=== PATIENT | female | born 1945 | race Caucasian/White ===

== ENCOUNTER 2016-06-14 17:57 | Inpatient (IN) | payer OTHER, MEDICARE ==
[~2016-06-14] VITALS: Ht 157.5 cm; Wt 81.6 kg
--- NOTE | ~2016-06-14 | HC ---
[facility] [place] [address] CONSULTATION Name: EDD HUNTER Room #: 405-P [facility] IN M.R.#: [id number] Admission: 06/14/16 Attend Phys: Dc Renner MD Discharge: 06/15/16 Date of : 41 Report #: [id number] THIS REPORT FOR: //name// CC: Dc Renner DATE OF SERVICE: 06/15/2016 HISTORY OF PRESENT ILLNESS: This lady was admitted by her primary care physician, Dr. Dc Renner. There has been concern about depression, anxiety and overall functioning. She has also had some changes in her mental status, which at the time certainly seemed to be out of proportion to what anxiety alone could produce and was having behavioral changes besides, so she was admitted to the hospital. It appears she has calmed down quite a bit. An MRI of the brain did show some frontal lobe atrophy. The patient herself does not know when she is having more trouble with depression and anxiety. PAST PSYCHIATRIC HISTORY: The patient denies any underlying psychiatric history. She and her have been together for almost 4 decades. She sees all of her difficulties as having come about in the last 5 years or so. In 2013, she went to inpatient psychiatry at [facility] and was managed by Dr. Terrell. It was very beneficial; however, she did not appear to get significant counseling afterwards. Wellbutrin was recently added by Dr. Renner. She has been on Remeron for quite a while. ALLERGIES: No known drug allergies. PAST MEDICAL HISTORY: Hypertension. SOCIAL HISTORY: for 38 years. No biological children of her own. has several children from past relationship. No alcohol or drug use. 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 Always had a very stable work history. LABORATORY DATA: WBC 7.1, hemoglobin 14.4, hematocrit 42.8 and platelets 246. Sodium 140, potassium 3.6, chloride 105, GFR 82, creatinine 0.7 and calcium 9.3. TSH 2.1. B12 of 776. Ammonia 17. AST 14, ALT 21 and total bilirubin 0.5. MRI of the brain has apparently shown that there is moderate atrophy with a frontal lobe predominance. There is no acute finding including infarction. MENTAL STATUS EXAM: female, casually dressed, depressed and anxious, normal spontaneous speech, no formal thought disorder, no involuntary movements. No suicidal ideation, no homicidal ideation, no hallucinations, no delusions. Insight and judgment fair. [facility] [address] [place] [address] CONSULTATION Name: EDD HUNTER Room #: 405-P [facility]#: [id number] Admission: 06/14/16 Attend Phys: Dc Renner MD Discharge: 06/15/16 Date of : 41 Report #: [id number] DIAGNOSES: AXIS I: Major depressive disorder, recurrent moderate, generalized anxiety disorder, panic disorder without agoraphobia. Cognitive disorder, not otherwise specified. AXIS II: Deferred. 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 AXIS IV: Moderate. AXIS V: 40-45. RECOMMENDATIONS: I do think there is a significant component of depression here, and the areas of decreased performed on the testing by Dr. Gillespie had suggested at that time that it could be due to level of depression. I would like to use Effexor in combination with Remeron as a more aggressive approach for longstanding depression and also anxiety. Some repeat testing by Dr. Gillespie may be indicated, and the patient may be a candidate for a PET scan, which sometimes can give more detailed and specific information if there is concern about atrophy in one brain region relative to another. If it is true we are dealing with frontal atrophy and seems to be possibly contributing to depression and cognitive dysfunction, then a dopaminergic agent like bupropion actually would make more sense, and could consider even a low dose of a stimulant like Ritalin. I am happy to have her follow up with me, and I would like her to start therapy and counseling in my office with Esvin Baeza. <ELECTRONICALLY SIGNED> By: Timur Mendoza MD 06/19/16 1414 1546 [id number] Timur Mendoza MD /nt
--- NOTE | ~2016-06-14 | D ---
[facility] [place] [address] DISCHARGE SUMMARY Name: EDD HUNTER Room #: 405-P [facility] IN M.R.#: [id number] Admission: 06/14/16 Attend Phys: Dc Renner MD Discharge: 06/15/16 Date of : 41 Report #: [id number] THIS REPORT FOR: //name// CC: Esvin Mendoza MD DATE OF SERVICE: 06/15/2016 HOSPITAL COURSE: The patient was admitted with altered mental status and underwent extensive evaluation. Her electroencephalogram was normal with no evidence of seizures. Her labs showed the following on the chemistry: Sodium was 140, potassium 3.6, chloride 105, bicarbonate 28, BUN of 9, creatinine 0.7, anion gap is 9, glucose 101 nonfasting, AST of 14, ALT of 21, total bilirubin was 0.5, calcium was 9.3, alkaline phosphatase 63 and the estimated GFR was 82. She did have an ammonia level which was normal at 17. She did have a protime of 10.6 with INR of 1.0 also normal. Her CBC showed a white count of 7100 with differential of 33% segs, 0% bands, 61%, lymphocytes, which is slightly elevated and monocytes of 6000. Eosinophils were 0, basophils were also 0 and the ANC was 2300. Hemoglobin was 14.4, normal hematocrit 42.8 and a platelet count of 246,000. Sedimentation rate was normal at 10. TSH was 2.120 and normal. Folate was greater than 19.9 and normal, vitamin B12 was 776 and normal. Urinalysis was essentially normal. Arterial blood gas was obtained. This showed a pH of 7.43 with pCO2 of 38.4 and a pO2 of 67.9 on room air. This is significant for mild hypoxemia. Subsequent chest x-ray showed bibasilar infiltrates/scarring and elevated right hemidiaphragm. She underwent MRI scan of the brain that showed moderate atrophy with frontal lobe predominance without infarction, hemorrhage or acute lateralizing process. A partial empty sella was noted as a normal variant. Slight inferior mucosal thickening in the right maxillary sinus was also noted. These were not felt to be clinically significant. Dr. Timur Mendoza saw the patient in consultation and felt that she had major depressive disorder, which was recurrent, moderate, with generalized anxiety disorder and panic disorder without agoraphobia and cognitive disorder, not otherwise specified, all in his AXIS I. AXIS III: In addition to the hypertension, mentioned the frontal lobe atrophy finding in the MRI with a moderate level in AXIS IV and AXIS V of 40-45. He recommended instead of using Wellbutrin, using Effexor instead. He also mentioned the significance of the frontal atrophy was not to be diminished to the patient now respond to therapy as expected. It might be worthwhile to obtain a PET scan to further assess her frontal lobe atrophy and if this is significantly contributing to her depression, cognitive dysfunction, a dopaminergic agent such as the Wellbutrin or even low dose stimulant Ritalin might be helpful in her case. Dr. Mendoza has graciously agreed to monitor of her therapy with myself continuing [address] [address] DISCHARGE SUMMARY Name: EDD HUNTER Room #: 405-P [facility] IN M.R.#: [id number] Admission: 06/14/16 Attend Phys: Dc Renner MD Discharge: 06/15/16 Date of : 41 Report #: [id number] prescription refills as needed and to have her start counseling in his office with Esvin Baeza. No other recommendations except to follow with the medication program as outlined in her discharge orders following regimen of medications Effexor XR 37.5 mg by mouth daily, alprazolam 0.5 mg by mouth 3 times daily p.r.n. anxiety, levothyroxine 0.075 mg by mouth daily, lisinopril 10 mg by mouth daily, mirtazapine 15 mg 2 tablets at bedtime, multivitamin by mouth daily and fish oil 1000 mg by mouth daily. To follow up in Dr. Mendoza's office in the next week for a counseling with Esvin Baeza and with myself in the next month and sooner as needed for any other issues. <ELECTRONICALLY SIGNED> By: Dc Renner MD 06/23/16 1154 1235 [id number] Dc Renner MD /nt
--- NOTE | ~2016-06-14 | EEG ---
[facility] [place] [address] ELECTROENCEPHALOGRAM Name: EDD HUNTER Room #: 405-P [facility] IN M.R.#: [id number] Admission: 06/14/16 Attend Phys: Dc Renner MD Discharge: 06/15/16 Date of : 43 Report #: [id number] THIS REPORT FOR: //name// CC: Dc Renner DATE OF SERVICE: 06/15/2016 DESCRIPTION OF PROCEDURE: This patient is being evaluated for altered mental status. EEG was done by placing the electrodes by standard 10-20 system of electrode placement. Both referential and sequential montages were used for recording. Background activity in this patient's EEG is about 11 Hz and 50 microvolts. This is a symmetrical activity. The patient appeared to be drowsy that is associated with bilateral slowing and a few vertex sharp waves. Photic stimulation was unremarkable. Throughout the records, no active epileptiform activity was noticed. IMPRESSION: This patient's EEG is within normal limits. Thank you very much for this referral. <ELECTRONICALLY SIGNED> By: Koffi Valentine MD 06/19/16 1528 1818 [id number] Koffi Valentine MD /nt
--- NOTE | ~2016-06-14 | H ---
[facility] [place] [address] HISTORY AND PHYSICAL Name: EDD HUNTER Nathan Room #: 405-P [facility] IN .R.#: [id number] Admission: 06/14/16 Attend Phys: Dc Renner MD Discharge: 06/15/16 Date of : 41 Report #: [id number] THIS REPORT FOR: //name// CC: Dc Mendoza MD DATE OF SERVICE: 06/14/2016 CHIEF COMPLAINT: Mental status changes. HISTORY OF PRESENT ILLNESS: The patient is a 70-year-old female, who was brought to my office today by her . The patient is having some sort of mental and/or physical decompensation, not getting out of bed for 20 out of 24 hours on most days in the last few weeks. She denies any particular fever, chills or sweats, but just has not felt well. She is not eating well, is not having regular bowel movements and is deathly afraid that something is terribly wrong. In fact, her symptoms were so severe that ____ the was moved to call for help for fear that some bad consequences would be ____ her during this time. PAST MEDICAL HISTORY: Significant for hypertension, depression versus bipolar, gastroesophageal reflux and possible cognitive disorder. ALLERGIES: She has no known drug allergies. MEDICATIONS: At home, she is taking alprazolam, fish oil, levothyroxine for hypothyroidism, lisinopril, mirtazapine and a multivitamin. She was started on bupropion several weeks ago; however, after getting home with the prescription, she read the package insert and decided that it was too dangerous and she did not take it as previously instructed. SOCIAL HISTORY: The patient is to Abraham Hunter. Her children are grown. She is a lifelong nonsmoker, nondrinker and has never abused recreational drugs. FAMILY HISTORY: Significant for rheumatic heart disease from which her father and other dementia that her mother of in her 80s, I believe. REVIEW OF SYSTEMS: The patient has had somewhat of a headache lately. No visual disturbances. No new hearing disturbances. No difficulties with swallowing. No chest pain, no shortness of breath. No abdominal pain, no diarrhea. She has some constipation. No new aches or pains in her legs. Generalized weakness. She has no focal deficits. PHYSICAL EXAMINATION: VITAL SIGNS: Her vital signs on admission showed a temperature of 98.[address] [address] HISTORY AND PHYSICAL Name: EDD HUNTER Room #: 405-P [facility]#: [id number] Admission: 06/14/16 Attend Phys: Dc Renner MD Discharge: 06/15/16 Date of : 43 Report #: [id number] Celsius with a pulse of 80, respirations of 18 per minute, blood pressure 139/65 and oxygen saturation on room air of 94%. GENERAL: The patient is a pleasant older white female, in no apparent distress. HEENT: Extraocular muscles are intact. Oropharynx is dry and pink. No lesions. No exudates. NECK: Without adenopathy or thyromegaly, JVD, mass or significant bruit. CHEST: Lungs are fairly clear bilaterally. CARDIOVASCULAR: Reveals a regular rhythm. ABDOMEN: Soft. Bowel sounds are present. No visceromegaly or masses. BACK: Completely nontender and has good range of motion. EXTREMITIES: Without cyanosis, clubbing or peripheral edema. Good peripheral pulses in all 4 distal extremities and good generalized strength and sensation. MENTAL STATUS: The patient is alert. She is oriented to person, place and time. Mini-mental status exam, scored well but she failed the clock test. No hallucinations or delusions. Affect was clearly downcast during the entire exam (please note the patient had a neuropsych testing done at ____ office and will bring copy of the formal report with them to the hospital tomorrow). ASSESSMENT AND PLAN: 1. Altered mental status: I cannot explain her symptoms based on exam alone. A workup has been started including labs including thyroid, blood cell counts, chemistry, etc. Brain scan per MRI. We will get a psychiatric evaluation as well. 2. Hypertension: We will monitor control and adjust treatment accordingly. 3. Family history of dementia: She does not have any overt memory issues on exam, although the clock test failure rather surprised me. The patient has a master's degree level of education and after scoring a near perfect mini-mental status exam, this did not jive with what I was seeing and hopefully can be explained better by the workup that has been initiated. 4. History of depression versus bipolar disease: We will defer to the psychiatrist as far as diagnosis and management, but I think that given the severity of her symptoms, she will need more than just single simple antidepressant regimen. 5. Anxiety disorder: I wonder whether she has panic attacks or posttraumatic stress disorder. She reports her symptoms began about 3 years ago and attained a severity, which paralyzes her almost to the point of inactivity. If her altered mental status exam workup is negative for physical issue, we would like for the Psychiatry community health consultant to comment on whether she meets criteria for inpatient psychiatric evaluation. It is noteworthy that she is not suicidal or homicidal at this time and has not been in any recent weeks to the best of my knowledge and that of her . <ELECTRONICALLY SIGNED> By: Dc Renner MD 06/23/16 1154 1227 1352 Dc Renner MD /nt
--- NOTE | ~2016-06-14 | EKG ---
[address] [address] ELECTROCARDIOGRAM REPORT Name: EDD HUNTER Room #: 405-P AD[facility] IN M.R.#: [id number] Admission: 06/14/16 Attend Phys: Dc Renner MD Discharge: Date of : 41 Report #: [id number] THIS REPORT FOR: //name// [facility] Test Date: 2016-06-15 Test Time: 07:18:06 Pat Name: EDD HUNTER Department: Room: 405 P Gender: F Crystal Report Developer: Diego MARIE : 1945 Requested By: Dc Renner Order Number: [id number] MD: Tamir Rivera Measurements Intervals [place] Rate: 69 P: 24 DE: 220 QRS: -45 QRSD: 122 T: 48 QT: 413 QTc: 443 Interpretive Statements Sinus rhythm Prolonged DE interval Left bundle branch block No previous ECG available for comparison Electronically Signed On 06-15-2016 14:12:54 [employer] DEVEL[employer] by Tamir Rivera [email or web address] <ELECTRONICALLY SIGNED> By: Tamir Rivera MD 06/15/16 1412 7 7 Tamir Rivera MD /NASIR
[2016-06-14] MEDS ORDERED: XANAX 0.25 MG0.25 MG PO (18:28)
[2016-06-14 18:30] VITALS: BP 139/65
[2016-06-14] MEDS ORDERED: LEVOTHYROXIN0.075 MG PO (18:32)
[2016-06-14] MEDS ORDERED: LISINOPRIL10 MG PO (18:33)
[2016-06-14] MEDS ORDERED: REMERON15 MG PO (18:34)
[2016-06-14] MEDS ORDERED: CENTRUM SILVER1 EAC4 PO (18:34)
[2016-06-14] MEDS ORDERED: FISH OIL 1,001000 M2 PO (18:35)
[2016-06-14] MEDS ORDERED: WELLBUTRIN XL150 MG PO (18:35)
[2016-06-14 19:23] VITALS: BP 127/50
[2016-06-14 23:29] LABS: ABG SAMPLE TYPE ARTERIAL; BE(vivo) 0.8 mmol/L (-2 to +3); HCO3 24.9 mmol/L (22.0-26.0); LACTATE 1.23 mmol/L (0.5-2.0); O2(CT) 19.5 mL/dL (15.0-23.0); O2Hb 92.7 % (92.0-98.0); PCO2 38.4 mmHg (35.0-45.0); PO2 67.9 mmHg (80.0-100.0); STICK SITE R.BRACHIAL; sO2 94.1 % (92.0-98.0); tCO2 26.1 mmol/L (24.0-30.0)
[2016-06-14 23:50] LABS: HEMATOCRIT 42.8 % (37.0-47.0); HEMOGLOBIN 14.4 gm/dL (12.0-15.0); MCH 29.9 pg (26.0-34.0); MCHC 33.6 % (28.0-37.0); MCV 89.2 fL (80.0-100.0); PLATELET COUNT 246 thou/uL (150-400); RDW 13.4 % (10.5-14.5); WBC 7.1 thou/uL (4.0-11.0)
[2016-06-15] LABS: PROTIME 10.6 Seconds (9.3-11.4)
[2016-06-15 00:07] VITALS: BP 112/54
[2016-06-15 00:18] LABS: ALBUMIN 3.4 g/dL (3.4-5.0); CALCIUM 9.3 mg/dL (8.5-10.1); CREATININE 0.7 mg/dL (0.6-1.3); DIRECT BILIRUBIN 0.1 mg/dL (<0.1-0.3); POTASSIUM 3.6 mmol/L (3.5-5.1); TOTAL BILIRUBIN 0.5 mg/dL (<0.1-1.0); TOTAL PROTEIN 6.3 g/dL (6.4-8.2)
[2016-06-15 00:20] LABS: MANUAL DIFF YES
[2016-06-15 01:29] LABS: ABSOLUTE NEUTROPHILS 2.3 thou/uL (1.4-8.2); TOTAL CELL COUNT 100
[2016-06-15 05:20] VITALS: BP 117/62
[2016-06-15 08:00] VITALS: BP 115/52
[2016-06-15 10:11] LABS: FOLIC ACID > 19.9 ng/mL (>3.0)
[2016-06-15 11:08] LABS: URINE BLOOD NEGATIVE (Negative); URINE COLOR YELLOW; URINE GLUCOSE-RANDOM* NEGATIVE (Negative); URINE KETONES 1+ (Negative); URINE LEUKOCYTES-REFLEX NEGATIVE (Negative); URINE PROTEIN (DIPSTICK) NEGATIVE (Negative); URINE SPECIFIC GRAVITY 1.025 (1.003-1.035); URINE UROBILINOGEN 0.2 E.U./dl (0.2-1.0)
[2016-06-15 11:10] LABS: URINE BILIRUBIN NEGATIVE (Negative)
[2016-06-15 16:06] VITALS: BP 121/70
[2016-06-15] MEDS ORDERED: EFFEXOR XR37.5 MG PO (19:00)
[2016-06-15 19:10] VITALS: BP 121/70
== END 2016-06-15 20:15 | disposition home or self-care (01) | DRG 880 ==
LOC: 4N 17:57
PROVIDERS: Internal Medicine
DX: F41.0 Panic disorder [episodic paroxysmal anxiety] (principal); F32.9 Major depressive disorder, single episode, unspecified; R41.82 Altered mental status, unspecified; I10 Essential (primary) hypertension; F41.1 Generalized anxiety disorder; F03.90 Unspecified dementia, unspecified severity, without behavioral disturbance, psychotic disturbance, mood disturbance, and anxiety
CPT/HCPCS: 10790

== ENCOUNTER → 2017-05-24 | Outpatient (CLI) | payer OTHER, MEDICARE ==
[~2017-05-24] MED LIST: CENTRUM SILVER1 EAC4 PO; EFFEXOR XR37.5 MG PO; FISH OIL 1,001000 M2 PO; LEVOTHYROXIN0.075 MG PO; LISINOPRIL10 MG PO; REMERON15 MG PO; WELLBUTRIN XL150 MG PO; XANAX 0.25 MG0.25 MG PO
== END ==
LOC: SLEEPLAB 12:37
DX: G47.33 Obstructive sleep apnea (adult) (pediatric) (principal)

== ENCOUNTER → 2017-10-24 | Outpatient (CLI) | payer OTHER, MEDICARE | LOC: SLEEPLAB 10-23 17:14 | DX: G47.33 Obstructive sleep apnea (adult) (pediatric) (principal) ==

== ENCOUNTER → 2017-11-08 | Outpatient (CLI) | payer OTHER, MEDICARE | LOC: ULTRA 06:08 | DX: E03.9 Hypothyroidism, unspecified (principal) ==

== ENCOUNTER 2018-05-30 13:17 | Inpatient (IN) | payer OTHER, MEDICARE ==
[~2018-05-30] VITALS: Ht 149.9 cm; Wt 66.2 kg
[2018-05-30 13:19] VITALS: BP 135/89
[2018-05-30 14:29] LABS: HEMATOCRIT 43.8 % (37.0-47.0); HEMOGLOBIN 14.8 gm/dL (12.0-15.0); MCH 30.5 pg (26.0-34.0); MCHC 33.8 g/dL (28.0-37.0); MCV 90.1 fL (80.0-100.0); RBC 4.86 mil/uL (4.20-5.00); RDW 13.8 % (10.5-14.5); WBC 6.1 thou/uL (4.0-11.0)
[2018-05-30 14:38] LABS: CALCIUM 9.7 mg/dL (8.5-10.1); CREATININE 0.7 mg/dL (0.6-1.0); POTASSIUM 4.1 mmol/L (3.5-5.1)
[2018-05-30 15:13] LABS: URINE BILIRUBIN NEGATIVE (Negative); URINE BLOOD NEGATIVE (Negative); URINE CLARITY CLEAR; URINE COLOR YELLOW; URINE GLUCOSE-RANDOM* NEGATIVE (Negative); URINE KETONES NEGATIVE (Negative); URINE LEUKOCYTES-REFLEX 1+ (Negative); URINE NITRITE-REFLEX NEGATIVE (Negative); URINE PROTEIN (DIPSTICK) NEGATIVE (Negative); URINE UROBILINOGEN 0.2 E.U./dl (0.2-1.0)
[2018-05-30 15:19] LABS: AMP/METHAMP Negative (Negative); BACTERIA-REFLEX None Seen /HPF (None Seen); BARBITURATES Negative (Negative); BENZODIAZEPINES POSITIVE (Negative); COCAINE Negative (Negative); METHADONE Negative (Negative); OPIATES Negative (Negative); PCP Negative (Negative); SQUAMOUS >10 Many /LPF (0-3); URINE RBC None Seen /HPF (0-2); URINE WBC-REFLEX 6-15 Few /HPF (0-5)
[2018-05-30 15:20] LABS: CRYSTALS None Seen /LPF (None Seen)
[2018-05-30 17:13] VITALS: BP 128/72
--- NOTE | 2018-05-30 17:24 | NUR ---
THIS NURSE RECEIVED REPORT FROM ER NURSE AT ABOUT 1710 R/T ADMISSION OF EDD HUNTER TO ROOM 528-B ON SENIOR BEHAVIORAL UNIT. ORDERS PER DR. TENA; ATTENDING PHYSICIAN DR. SYED. LABS COMPLETED IN ER, NO DISCREPANCIES; 20 GUAGE IV SL R AC. PATIENT REPORTS NO SUICIDAL IDEATION. AMBULATES PER SELF, NO SKIN ISSUES.
[2018-05-30 17:47] VITALS: BP 156/101
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
[2018-05-30 20:30] VITALS: BP 146/92
[2018-05-30 21:00] VITALS: BP 146/92
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
--- NOTE | 2018-05-31 06:05 | NUR ---
PATIENT SLEPT WELL OVERNIGHT WITH DIFFICULTY GETTING TO SLEEP INITIALLY. PT WAS ANXIOUS DUE TO NEW ADMISSION/NEVER BEEN ON A PSYCHIATRIC UNIT INPATIENT PRIOR TO ADMISSION. MEDICATION ADMINISTERED PER ORDER, SEE MAR, WITH TRAZODONE FOR INSOMNIA. NEW MEDICATON, EDUCATION PROVIDED TO PATIENT WITH CONSENT TO TAKE. NO SIDE EFFECTS OBSERVED AFTER ADMINISTRATION AND PATIENT APPEARED TO BE RESTING PEACEFULLY WITH RR EVEN AND UNLABORED. SLEPT 8 HOURS LAST HS WITH REPORTS OF INSOMNIA, SEVERE, PRIOR TO ADMISSION. TRAZODONE APPEARS EFFECTIVE. WILL CONTINUE TO MONITOR PER PHYSICIANS ORDER FOR SAFETY AND ANY UNMET NEEDS.
[2018-05-31 08:00] VITALS: BP 134/78
[2018-05-31 08:53] VITALS: BP 134/78
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
--- NOTE | 2018-05-31 16:02 | NUR ---
ASSUMED PT CARE AT 0700 REPORT RECEIVED FROM NURSE. PT IS AOX4, VSS. NO PAIN COMPLAINT. APPEARNACE IS NEAT. EUTHYMIC MOOD. PT ASKED TO BE DRESSED UP IN THE AM. CONSUMED 100% BREAKFAST AND LUNCH. CAME TO VISIT, PT HAD A CALM TIME COMMUNICATING WITH . PT ALSO HAD A MEETING WITH DR TENA WHO MADE SOME CHANGES IN PT HS MEDICATIONS. PT AWARE OF THESE CHANGES. PT UP AD KAT. NO HALLUCINATIONS, PARANOID STATE NOTED. PT PARTICIPATES IN GROUP, BUT VERY QUIET. PT PREFERS TO STAY IN ROOM ALONE PLAYING WORD CROSSING WHEN NOT IN GROUP AND EATING. MEDICATIONS ADMINISTERED ORDERED. WILL CONTINUE TO MONITOR.
--- NOTE | 2018-05-31 16:46 | NUR ---
IV LINE FROM RIGHT AC WAS DISCONTINUED PER DR ORDER AT 11:00 THIS AM. SITE GAUZED AND TAPED.
--- NOTE | 2018-05-31 17:40 | NUR ---
CONSUMED 25% OF BREAKFAST 75% OF LUNCH , 75% OF DINNER
[2018-05-31 19:35] VITALS: BP 138/92
--- NOTE | 2018-05-31 22:00 | NUR ---
ASSUMED PATIENT CARE AT APPROXIMATELY 1900. VERBAL REPORT PROVIDED BY OFF GOING RN. PATIENT HAD VISIT WITH , OUTSIDE OF NORMAL VISITING HOURS, UPON ARRIVAL TO SHIFT AND APPEARED TO BE BRIGHTER THIS SHIFT. SMILING APPROPRIATELY. COMPLIANT AND COOPERATIVE WITH STAFF REQUESTS. SYNTHROID ORDER CHANGED, SEE MAR, EDUCATION PROVIDED TO PATIENT ON CHANGE AND VERBALIZED UNDERSTANDING. SHOES WITH LACES X 2 (ONE PAIR OF SLIPPER SHOES/TENNIS SHOES), WAS FOUND ON PATIENTS FEET AND IN HER ROOM ON THE FLOOR. EDUCATION PROVIDED ON THE SAFE UNIT AND WHAT CLOTHING/SHOES ARE ALLOWED OR NOT. I DID TAKE POSSESSION OF THE SHOES X2 AND PLACED IN ASSIGNED LOCKER FOR UNIT SAFETY. ASSESSED DEPRESSION RATING 7/10. ANXIETY 6/10. PAIN 0/10. VITAL SIGNS ELEVATED INCLUDING HEART RATE AND BLOOD PRESSURE. NOTED TO BE PRESCRIBED LISINOPRIL AT HOME, BUT PATIENTS REPORTS BLOOD PRESSURE HAS BEEN HYPOTENSIVE PRIOR TO ADMISSION AND LISINOPRIL WAS HELD PRIOR TO ADMISSION. DR. MEDINA COMMUNICATION RECOGNIZES LISINOPRIL IS ON HOLD WHILE ADMISSION. PER DR. MEDINA PROGRESS NOTE STATES THE PATIENT WAS DIAGNOSED WITH NEELAM AND CPAP MACHINE WILL BE FITTED AND ORDERED AFTER DISCHARGE FROM PSYCHIATRIC UNIT. ADMITS DEPRESSION FEELINGS PRESENT RATING 7/10 AND ANXIETY 6/10, RESTLESS. PLESANT AND REPORTS DAY WAS WELL. SLEEP WAS GOOD LAST NIGHT WITH DIFFICULTY INITALLY GETTING TO SLEEP. SLEPT WELL ONCE ASLEEP. PATIENT REPORTS LAST BOWEL MOVEMENT 05/31/18, WITH STRAINING TO HAVE BM. GAVE MILK OF MAGNESIUM TO ASSIST WITH CONSTIPATION FEELINGS, NORMALLY A BOWEL MOVEMENT PER DAY. REPORTS AT HOME WAS TAKING MIRALAX, ONLY DAILY, MIXED WITH MORNING COFFEE TO ASSIST WITH CONSTIPATION FEELINGS. LOW GRADE FEVER ASSESSED, SEE VITAL SIGNS, AND TYLENOL ADMINISTERED, PRN, FOR FEBRILE. PATIENT REPORTS BASELINE TEMPERATURE IS GENERALLY LOW. VERBALLY DENIES SI/HI/A/V H. ALERT AND ORIENTED X 4. APPEARANCE IS GOOD, NO ODOR. APPETITE HAS BEEN FAIR, VERBALLY REFUSING HS SNACK. APPETITE CONTINUES DECREASED PER PATIENT BUT DID CONSUMED MEALS OUT OF BED, SEE CHARTING FOR AMOUNT CONSUMED. MEDICATION COMPLIANT WITH SCHEDULED MEDIATIONS AND EDUCATIN PROVIDED ON PATIENT RIGHTS, TREATMENT OVERVIEW, AND EXPECTATIONS WITH DAILY SCHEDULED. VERBALIZED UNDERSTANDING. SUPPORTIVE AND VISIT WENT THERAPEUTIC. WILL CONTINUE TO MONITOR PT CLOSELY FOR SAFETY AND ANY ADDITIONAL UNMET NEEDS.
--- NOTE | 2018-06-01 06:32 | NUR ---
DIANA HAD A GOOD SHIFT THROUGHOUT THE HS. HAD DIFFICULTY GETTING TO SLEEP INITIALLY AFTER ADMINISTRATION OF HS MEDICATION INCLUDING INCREASED DOSE OF TRAZODONE 100MG PO HS. COMPLIANT WITH MEDICAITONS. ONCE PATIENT WAS ASLEEP APPEARED TO REST PEACEFULLY THROUGHOUT THE HS, NO REPORTS OF AMBULATION OR DIFFICULTY STAYING ASLEEP.
[2018-06-01 09:19] VITALS: BP 127/76
[2018-06-01 09:29] VITALS: BP 128/77
--- NOTE | 2018-06-01 14:14 | NUR ---
ASSUMED PT CARE AT 0700H. PT ALERT. PT HAS NO S/S OF DISTRESS. PT STATES NO THOUGHTS OF HARMING SELF OR OTHERS. PT TOLERATES MEALS AND MEDS. PT HAD VISIT FROM SPOUSE. PREVIOUS REPORT OF PT PREVIOUS BOWEL BEING CONSTIPATED. RECIEVED NEW ORDERS FROM DR. MEDINA CANVAS CUTTER FOR DR. RAMAN TO GIVE MIRALAX PRN AND COLACE BID. PT CURRENTLY SLEEPING IN ROOM. PT CONTINUES TO BE MONITORED FOR SAFETY [id number].
--- NOTE | 2018-06-01 14:57 | NUR ---
GIA met with Pt and her family (spouse) and discussed insurance. Pt was worried about her insurance not paying for her hospitalization. She also has concerns about her medications. Pt doesn't remember medications taken or their names. Pt was also confused about her rights as a Pt here. Pt's Abraham stated Pt was confused about her medications and doesn't fully understand her rights. GIA explained to Pt that she has the rights to ask questions and raise her concerns including refusal of taking medications. GIA explained that Pt has the right to leave if Pt chooses unless Pt is court orederd to be admitted. GIA explained that that medical needs including medications should be directed to nursing staff and the doctor. GIA called nurse Jeremy to provide a better explaination. Jeremy clarified the medications Pt was given last night and this morning. Pt complained of difficulty falling and staying asleep and stated "that's my biggest problem which led me here. I can't sleep". Pt's spouse reported that Pt had sleep test done twice here at this hospital, but never received f/u. Pt wants to know if she can get CPAP machine. GIA explained that a medical doctor should be contacted and that GIA will relay the information to Dr. Maya. GIA then discussed insurance and reminded Pt that Medicare will pay for treatment and if there is anything left unpaid, her secondary insurance ([employer]) will pickle pumper the rest. Abraham stated that Pt has hard time undersding, but he understands how it works. GIA then printed a list of the medications and provided Abraham with the copy and encoouraged him to ask Dr. Maya any additional questions he may have. He thanked GIA and stated he will.
--- NOTE | 2018-06-01 17:31 | H ---
[facility] [place] [address] HISTORY AND PHYSICAL Name: EDD HUNTER Room #: 528B-A ADM IN M.R.#: [id number] Admission: 05/30/18 Attend Phys: Phi Maya DO Discharge: Date of : 41 Report #: [id number] THIS REPORT FOR: //name// CC: Phi Renner DATE OF SERVICE: 05/30/2018 ATTENDING physician: Phi Maya DO SCREW MACHINE OPERATOR SINGLE SPINDLE: Dr. Renner. The patient is a full code. ALLERGIES: No known allergies. REASON FOR ADMISSION: Depression, refractory to outpatient treatment, failing as well to get out of bed the last week, poor hygiene. HISTORY OF PRESENT ILLNESS: This is a 72-year-old female admitted to Behavioral Health Unit at [facility]. She last had admission to [facility] in May of 2016. We do have records for that. Within a couple of months of that admission, she had a neuropsychological evaluation by Dr. Nabeel Gillespie at this clinic. I do not have the findings of that other than being informally noted there was evidence of medial temporal dysfunction and isolated memory deficits, however, diagnosis of major neurocognitive disorder was not made. The complaints that the patient gave at the Emergency Room are as follows. She has had increasing depression for the last several months. The patient struggled with depression, anxiety, episodically last several years. Reports feeling nervous and "shaky" and no known stressors. She takes alprazolam 0.25 mg every 8 hours for symptoms and has had recent medication change. Apparently, she last saw Dr. Alicea couple months ago. The patient most recently took alprazolam at 0730 hours this morning. I spoke with Dr. Renner, Internal Medicine yesterday regarding symptoms. She denied SI, HI, self-harm or auditory or visual hallucinations. On further review of systems, states increased depression with anxiety attacks x 5 weeks. REVIEW OF SYSTEMS: From the ER: CONSTITUTIONAL: Negative for fever or chills. EYES: Negative for eye pain or visual change. HEENT: Negative for rhinorrhea or sore throat. RESPIRATORY: Negative for cough or shortness of breath. CARDIOVASCULAR: Negative for chest pain or palpitations. GASTROINTESTINAL: Negative for abdominal pain, nausea, vomiting or diarrhea. [address] [address] HISTORY AND PHYSICAL Name: LEDYFOUZIAEDD N Room #: 528B-A [facility] IN [facility].#: [id number] Admission: 05/30/18 Attend Phys: Phi Maya DO Discharge: Date of : 43 Report #: [id number] GENITOURINARY: Negative for burning, urgency, frequency or hematuria. MUSCULOSKELETAL: Negative for back pain or muscle pain. SKIN: Negative for any rash. NEUROLOGICAL: Negative for numbness, tingling or weakness. ENDOCRINE: Negative for diabetes and hypothyroidism. HEMATOLOGIC AND LYMPHATIC: Negative for easy bleeding or bruising. Otherwise, 10-point review of systems was negative. ALLERGIES: No known allergies. MEDICATIONS: Include docosahexaenoic acid 100 mg p.o. daily, multivitamin with minerals oral daily, mirtazapine 50 mg at bedtime, which she denied to me, lisinopril 10 mg daily, levothyroxine 75 mcg daily; however, she is now taking 50 mcg and alprazolam 0.25 mg every 8 hours. She was recently restarted on Effexor. She believes she was taking 75 mg a day. PAST MEDICAL HISTORY: Includes hypertension, miscarriage with D and C in 1979. PAST SURGICAL HISTORY: Hysterectomy in 1988. PSYCHIATRIC HISTORY: Short-term memory loss, anxiety attacks, depression. FAMILY HISTORY: Father of Creutzfeldt-Julius disease. Mother had dementia. Mother had anoxic brain injury and was in a locked-in syndrome. Her father had reported Creutzfeldt-Julius disease. LABORATORIES ON ADMISSION: TSH elevated at 9.190. It has been less than a month since her dose of levothyroxine has been increased, anion gap 6, glucose 116. Urine benzodiazepine screen positive, leukocyte esterase positive, 1+ urine, white blood cells 6-15 and squamous epithelial cells greater than 10. She had an MRI in May 2016. It was suspicious because it raised moderate atrophy with frontal lobe predominance without infarction, hemorrhage or acute lateralizing process and again she did have neuropsych testing, but report is not available. She had an EEG, which was grossly normal during that admission. Interestingly too, she has reported some sleep disturbance, but had a sleep study 11/03/2017 and she does have obstructive sleep apnea-hypopnea, on definite CPAP since the patient had minimal sleep. They recommended caution regarding driving or operating machinery. Weight loss, TSH may be considered, oral appliance. We recommend an auto titrating CPAP between 5 and 12 cm of water pressure. Unclear at this point if the patient is using that. SOCIAL HISTORY: The patient was born and raised in [place]. 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 She has 2 adult stepchildren with her . Her is a retired data security coordinator from [employer]. [facility] [address] [place] [address] HISTORY AND PHYSICAL Name: EDD HUNTER Room #: 528B-A [facility] IN [facility]#: [id number] Admission: 05/30/18 Attend Phys: Phi Maya, DO Discharge: Date of : 43 Report #: [id number] LABORATORY DATA: CBC: H and H was 14.8 and 43.8. White count 6.1, platelet count 268. Chemistry showed within normal limits except anion gap, glucose, which was nonfasting and TSH. Toxicology negative. Alcohol positive for benzodiazepines in her urine. There were rbc's, wbc's, no bacteria. No criminal history. No legal history. No history Denied physical, sexual or emotional abuse. PHYSICAL EXAMINATION: VITAL SIGNS: Temperature 36.9, pulse 76, respirations 18, BP 134/70, O2 sat 96%. MUSCULOSKELETAL: Normal gait and station, wears glasses. Mental status examination was performed. The patient scored 22/30. Differences included 4 from 5, one recent memory, only one on the money management question, got one wrong. She did not put the correct clock at the correct time. Otherwise, she was fully oriented. Currently hospital medications are trazodone 100 mg at bedtime, we increased that from yesterday, venlafaxine 150 mg daily. She will get vitamin D 5000 international units daily, Synthroid 50 mcg daily, alprazolam 0.25 three times a day p.r.n., ondansetron p.r.n. This is a well-developed, well-nourished female appearing stated age. Attention and concentration are intact. Speech is normal, rate, rhythm, tone. Thought process is linear and goal directed. Thought content, ameliorating her feelings of depression, inability to concentrate and really get out of bed. Denied SI, HI. Denied hopelessness, helplessness. Denied homicidal intent or plan. Memory formally tested, mildly impaired as described above and oriented x 4. Insight fair. Judgment fair. Fund of knowledge, at least average. ASSESSMENT: A 72-year-old female admitted with symptoms of major depression as well as variable anxiety, who has been refractory to outpatient treatment by PCP and psychiatrist. 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 PLAN: I went ahead and discontinued the Depakote as at the moment, it does not serve any useful purpose. Continue minocycline 150 mg daily. Continue vitamin D for now. Continue alprazolam. Continue further medication changes once we get to better handle the case. Time spent on interview, evaluation of records, coordination of care exceeded [address] [address] HISTORY AND PHYSICAL Name: EDD HUNTER Nathan Room #: 528B-A [facility] IN ..#: [id number] Admission: 05/30/18 Attend Phys: Phi Maya DO Discharge: Date of : 43 Report #: [id number] minutes. The time that begun this morning was about 10:00 a.m. strengths: , community dewlling weaknesses, cognitive impairment, not currently in psychotherpay <ELECTRONICALLY SIGNED> By: Phi Maya DO 06/01/18 [id number] Phi Maya DO /nt
[2018-06-02 00:46] VITALS: BP 157/86
--- NOTE | 2018-06-02 05:58 | NUR ---
SLEPT WELL DURING THE NIGHT EXCEPT FOR BEING AWAKENED BY A LOUD RESIDENT IN HALLWAY. CALM, PLEASANT, CONVERSATIONAL. LAST BM WAS SATURDAY, RECEIVING BM MEDS. DENIES PAIN. AMBULATES IN HALLWAY. WENT TO SLEEP AT 2230.
[2018-06-02 08:47] VITALS: BP 125/77
--- NOTE | 2018-06-02 18:43 | NUR ---
ASSUMED CARE OF PT AT APPROX 0700. PT IS ALERT AND ORIENTED X4, EVEN NONLABORED BREATHING. NO SIGNS OF ACUTE DISTRESS. ASSESSMENT CHARTED. PROVIDED PRN MIRALAX PT REPORTS NO BM. MAG CITRATE TO BE GIVEN WELL WITH A NEW SCHEDULE OF MIRALAX WITH HOPES OF A BOWEL MOVEMENT. PT IN DAY ROOM MOST OF DAY. FAMILY VISITING DURING VISITING HOURS. PT PLAYING CARDS WITH SELF AND WITH OTHERS. INTERACTING WELL. APPROPRIATE BEHAVIORS OBSERVED. WILL CONTINUE TO MONITOR.
[2018-06-02 19:43] VITALS: BP 138/82
[2018-06-02 21:42] VITALS: BP 138/82
--- NOTE | 2018-06-03 03:01 | NUR ---
PATIENT HAS YET TO HAVE ADEQUATE BM. MAG CITRATE GIVEN AROUND 1930, BUT OF BEDTIME HAS HAD NO RESULTS. SLEPT WELL THROUGH THE NIGHT W/O COMPLAINT.
[2018-06-03 07:30] VITALS: BP 121/60
--- NOTE | 2018-06-03 08:44 | NUR ---
ASSUMED CARE OF PT AT APPROX 0700. PT IS ALERT AND ORIENTED X4, ABLE TO VOICE HER NEEDS. REPORTS SLEEP WAS ON AND OFF LAST NIGHT. C/O CONSTIPATION. LAST BM WAS 4 DAYS AGO. HAD MAG CITRATE YESTERDAY WITH NO RESULT. BS HYPOACTIVE, GIVE PRN MAG -AL PLUS AND SCHEDULE MIRALAX WITH WARM PRUNE JUICE. ASSESSMENT CHARTED. PT IN DAY ROOM AT THIS MOMENT. ATE 95% BREAKFAST, DENIES PAIN, SOB,N/V. PT SAID HER WOULD LIKE TO STAY WITH HER LONGER AT EVENING TIME. INTERACTING WELL. DENIES HAVING SUCIDAL THOUGHT, ANXIOUS, OR DEPRESSE. PT C/O MILD TREMOR AND THINKS IT FROM ONE OF HER MEDICATIONS, SHE TOLD HER PSYCHIATRIST THIS MORNING. WILL CONTINUE TO MONITOR. APPROPRIATE BEHAVIORS OBSERVED. HER GOALS TO CONTINUE WITH THERAPY, TAKE MEDS, HAS BM AND HAS A GOOD DAY.WILL CONTINUE TO MONITOR.
[2018-06-03 19:40] VITALS: BP 158/93
--- NOTE | 2018-06-04 00:17 | NUR ---
ASSUMED CARE OF THE PATIENT AT 1935 PM. ALERT ET ORIENTED X 4, MAKES NEEDS KNOWN. CALM ET COOPERATIVE WITH STAFF, DOES STAY TO HERSELF IN HER ROOM, DOES NOT COME OUT TO THE DAYROOM. DENIES ANXIETY AND DEPRESSION. CONTINUES TO HAVE A FLAT AFFECT. TOOK HER HS MEDICATION WITHOUT ANY DIFFICULTY. IS WORRIED THAT SHE NEEDS TO HAVE A BM, BUT IT WAS REPORTED TO THIS NURSE, SHE HAD ONE LARGE BM ON THE DAY SHIFT. REMAINS ON 12 MINUTE CHECKS FOR HER SAFETY.
--- NOTE | 2018-06-04 02:41 | NUR ---
THE PATIENT HAS BEEN SLEEPING IN BED, WITH RESP., EVEN, AND UNLABORED. REMAINS ON 12 MINUTES CHECKS FOR HER SAFETY.
--- NOTE | 2018-06-04 06:36 | NUR ---
THE PATIENT SLEPT 7.4 HOURS LAST NIGHT.
[2018-06-04 08:54] VITALS: BP 141/77
--- NOTE | 2018-06-04 09:01 | NUR ---
GIA scheduled pt with intensive outpatient therapy services with [facility] on June 06, 2018 at 10:00am.
--- NOTE | 2018-06-04 12:31 | NUR ---
PATIENT HAS BEEN UP AND OUT ON THE UNIT, HAD BREAKFAST, REFUSED LUNCH. PATIENT HAS HAD BOWEL MOVEMENT X2 THIS MORNING. PATIENT DENIES SUICIDAL, HOMOCIDAL IDEATION. SHE RATED HER DEPRESSION AT 6/10, ANXIETY 4/10. PHARMACY INFORMATION OBTAINED FROM PATIENT AND GIVEN TO DR. TENA BETOREEAngie IN THE MORNING MEETING. NO AGITATION OR AGGRESSIVE BEHAVIOR NOTED AT THIS TIME, WILL MONITOR FOR SAFETY.
[2018-06-04] MEDS ORDERED: EFFEXOR XR75 MG PO (12:42)
[2018-06-04] MEDS ORDERED: SEROQUEL 25 MG25 M1 PO (12:44)
[2018-06-04] MEDS ORDERED: SEROQUEL 50 MG50 MG PO (12:45)
[2018-06-04] MEDS ORDERED: MIRALAX17 GM PO (12:47)
[2018-06-04] MEDS ORDERED: SYNTHROID50 MCG PO (12:48)
[2018-06-04] MEDS ORDERED: VITAMIN D5000 UNIT PO (12:48)
[2018-06-04 13:18] VITALS: BP 141/77
--- NOTE | 2018-06-04 15:03 | NUR ---
Patient Name: EDD HUNTER Admission Date: 05/30/18 DISCHARGE PLAN: Home with her Care Assessment: Pt was assessed and treated for depression. Pt was referred to [facility] for intensive outpatient therapy services. Level II Assessment: N/A Transportation: Pt was transported by her Aneesh Special Instructions/Notes: DISCHARGE TO FACILITY: Facility: Phone: Fax: Address: Contact Name: Phone: PCP: TONIO Psychiatrist: Elke Baeza
--- NOTE | 2018-06-06 09:10 | D ---
[facility] [place] [address] DISCHARGE SUMMARY Name: EDD HUNTER Room #: 528A-A [facility] IN ..#: [id number] Admission: 05/30/18 Attend Phys: Phi Maya DO Discharge: 06/04/18 Date of : 41 Report #: [id number] THIS REPORT FOR: //name// CC: Phi Renner DATE OF SERVICE: 06/04/2018 ATTENDING PHYSICIAN: Phi Maya DO BLEACH PACKER: Dc Renner MD DISCHARGE DIAGNOSES: 1. Major depressive disorder, recurrent, severe degree, improved. 2. Anxiety, unspecified, improved. 3. Mild neurocognitive disorder, [facility] Mental Status Examination score 22/30. 4. Historical report of isolated memory impairment found by Dr. Gillespie on neuropsychological testing. 5. She also has obstructive sleep apnea, which is untreated. REASON FOR ADMISSION: Referred by Dr. Renner for depression refractory to outpatient care, unable to get out of bed for alimentation. HOSPITAL COURSE: The patient was admitted to Adult Psychiatric Unit. There, she did have some baseline anxiety, which responded well to medication change. Her alprazolam was discontinued. Put her on Seroquel 25 mg b.i.d. during the day, 50 mg at bedtime. I increased the venlafaxine to 150 mg daily. She had not been on it continuously, but had been on it for roughly a month or so. During the admission, she had several episodes of constipation. She had some bloody stool on day of discharge. Dr. Renner made a last minute decision after I discharged her to basically directly admit her to the medical unit for Gastroenterology consultation and colonoscopy. He is concerned about the potential of inflammatory bowel disease being present. Laboratories on this admission, CBC was within normal limits. Chemistries within normal limits. TSH was 9.190. Toxicology: Urine drug screen was negative except benzodiazepines. DISCHARGE MEDICATIONS: As follows: Venlafaxine 150 mg extended release oral daily; Seroquel 25 mg at 0900 hours and 1400 hours, 50 mg at bedtime; polyethylene glycol 17 grams twice a day; levothyroxine 50 mcg daily for hypothyroidism; cholecalciferol 5000 international units daily; supplementation -- multivitamin oral daily. Also, medications stopped this admission -- aside from the alprazolam, lisinopril, mirtazapine were stopped. [address] [address] DISCHARGE SUMMARY Name: ELSAEDD Nathan Room #: 528A-A [facility]#: [id number] Admission: 05/30/18 Attend Phys: Phi Maya, Discharge: 06/04/18 Date of : 41 Report #: [id number] The patient tolerated the admission well. During the family meeting, we discussed the patient has a lot of lack of activity activity, nature of recovery from depression. DISCHARGE PLAN: She will go to [facility] at [facility]. She is to continue psychotherapy at least weekly with [facility] psychologist and Dr. Alicea for medication management. MENTAL STATUS EXAMINATION: GENERAL: Well-developed, well-nourished female, appearing stated age. ATTENTION: Intact. CONCENTRATION: Intact. SPEECH: Normal, rate, rhythm, and tone. THOUGHT PROCESS: Linear and goal directed. THOUGHT CONTENT: Anxious for discharge. MOOD AND AFFECT: Constricted, congruent. Denied SI, HI. Denied helplessness, hopelessness. Denied auditory, visual, tactile hallucinations. MEMORY: Not fully tested. INSIGHT: Limited. JUDGMENT: Fair. FUND OF KNOWLEDGE: Not greater than average. MUSCULOSKELETAL: Normal gait and station. VITAL SIGNS ON THE DAY OF DISCHARGE: As follow: Temperature 36.2, pulse 75, respirations 18, BP 141/77. PROGNOSIS: Fair to guarded. She may be compliant with outpatient treatment including psychosocial management. <ELECTRONICALLY SIGNED> By: Phi Maya DO 06/06/1810 09 2140 Phi Maya DO /nt
== END 2018-06-04 17:19 | disposition home or self-care (01) | DRG 881 ==
LOC: ER 13:17 → SBH 15:41 → EROBS 15:41 → SBH 17:21 → 3W 06-04 17:10 → SBH 06-04 17:17
PROVIDERS: Emergency Medicine; ADMIT Psychiatry & Neurology Psychiatry
DX: F32.9 Major depressive disorder, single episode, unspecified (principal); I10 Essential (primary) hypertension; F41.9 Anxiety disorder, unspecified; R41.3 Other amnesia; E03.9 Hypothyroidism, unspecified; G47.33 Obstructive sleep apnea (adult) (pediatric); K59.00 Constipation, unspecified; R41.9 Unspecified symptoms and signs involving cognitive functions and awareness; Z90.710 Acquired absence of both cervix and uterus; Z81.8 Family history of other mental and behavioral disorders; Z79.899 Other long term (current) drug therapy
CPT/HCPCS: 10880

== ENCOUNTER 2018-06-04 17:24 | Inpatient (IN) | payer OTHER, MEDICARE ==
[~2018-06-04] VITALS: Ht 149.9 cm; Wt 66.7 kg
--- NOTE | ~2018-06-04 | P ---
[facility] [place] [address] PROCEDURE REPORT Name: EDD HUNTER Room #: 363-P [facility] IN M.R.#: [id number] Admission: 06/04/18 Attend Phys: Dc Renner MD Discharge: 06/06/18 Date of : 43 Report #: [id number] THIS REPORT FOR: //name// CC: Dc Renner MD DATE OF SERVICE: 06/06/2018 PROCEDURE PERFORMED: Colonoscopy with polypectomy and biopsies. HISTORY OF PRESENT ILLNESS: The patient is a 72-year-old female who was admitted with constipation and bright red blood per rectum. Last colonoscopy was reportedly over 10 years ago. She does not recall the findings at that time. The patient has also had weight loss of approximately 20 pounds over the last 6 months with decreased appetite. Attempted colonoscopy by my partner, Dr. Hickman yesterday. She was noted to have a fecal impaction. This was disimpacted manually. The prep obviously was inadequate; therefore, the patient was prepped last night again. Plan is for colonoscopy today. DESCRIPTION OF PROCEDURE: The risks and benefits of the procedure were explained to the patient, those risks including, but not limited to, bleeding, perforation and the risk of sedation. She understood these risks and gave informed consent. Sedation was given using propofol per anesthesia. Next, a digital rectal exam showed small external hemorrhoids, otherwise normal. Next, using a standard Olympus colonoscope, the scope was placed in the patient's anus and advanced under direct vision to the cecum. The overall prep was excellent. The cecum and ileocecal valve were normal in appearance. The ascending and transverse colon were normal. In the descending colon, there was a 1 cm sessile polyp. This was removed by snare cautery, otherwise normal. The sigmoid colon was normal. In the rectum, the upper and mid portion of the rectum was normal; however, in the very distal portion, there was a significant colitis with ulcerations. This may reflect ulcerative colitis, but may be secondary to colitis or inflammation due to recent fecal impaction. Several biopsies were obtained. Also noted were medium to large size internal hemorrhoids. Close examination did show some evidence of recent bleeding, but there was no active bleeding on exam today. Again, 2 external hemorrhoids were also noted on exam. At this point, the scope was then withdrawn and the procedure terminated. The patient tolerated the procedure well. IMPRESSION: 1. Descending colon polyp. 2. Distal rectal colitis. This may reflect ulcerative colitis as the patient possibly has a history of inflammatory bowel disease or this may be inflammation due to recent fecal impaction, which has now been removed. Biopsies were obtained. 3. Medium to large internal hemorrhoids with signs of recent bleeding, likely [address] [address] PROCEDURE REPORT Name: EDD HUNTER Room #: 363-P [facility] IN M.R.#: [id number] Admission: 06/04/18 Attend Phys: Dc Renner MD Discharge: 06/06/18 Date of : 43 Report #: [id number] source of recent bleeding as well. 4. Two small external hemorrhoids. RECOMMENDATIONS: 1. Await biopsies. 2. We will start Analpram per rectum b.i.d. Thank you for allowing me to participate in her care. By: [id number] Clive Lundberg MD /nt
[2018-06-04 15:57] VITALS: BP 127/80
[~2018-06-04 17:24] MED LIST changes: +EFFEXOR XR75 MG PO; +MIRALAX17 GM PO; +SEROQUEL 25 MG25 M1 PO; +SEROQUEL 50 MG50 MG PO; +SYNTHROID50 MCG PO; +VITAMIN D5000 UNIT PO
[2018-06-04 19:43] VITALS: BP 136/76
[2018-06-04 20:11] LABS: HEMATOCRIT 40.9 % (37.0-47.0); HEMOGLOBIN 13.7 gm/dL (12.0-15.0); MCH 30.1 pg (26.0-34.0); MCHC 33.6 g/dL (28.0-37.0); MCV 89.3 fL (80.0-100.0); RBC 4.57 mil/uL (4.20-5.00); RDW 13.8 % (10.5-14.5); WBC 11.9 thou/uL (4.0-11.0)
[2018-06-04 20:17] LABS: CALCIUM 9.5 mg/dL (8.5-10.1); CREATININE 0.7 mg/dL (0.6-1.0); POTASSIUM 4.2 mmol/L (3.5-5.1)
[2018-06-04 20:22] LABS: PROTIME 10.3 Seconds (9.3-11.4)
[2018-06-05] VITALS: BP 120/60
--- NOTE | 2018-06-05 02:03 | NUR ---
admitted to the unit at shift change as a direct from behavioral health unit. she is anxious and needs reassurance. iv started and fluids infusing. she is npo as per orders. she is awaiting her consult in am with GI. her and cousin went home at bedtime. she was very talkative and pleasant and smiling and enjoying conversations.
[2018-06-05 02:20] LABS: URINE CLARITY CLEAR; URINE COLOR YELLOW; URINE SPECIFIC GRAVITY <= 1.005 (1.005-1.035)
[2018-06-05 02:21] LABS: URINE BILIRUBIN NEGATIVE (Negative); URINE BLOOD NEGATIVE (Negative); URINE GLUCOSE-RANDOM* NEGATIVE (Negative); URINE KETONES TRACE (Negative); URINE LEUKOCYTES 1+ (Negative); URINE NITRITE NEGATIVE (Negative); URINE PROTEIN (DIPSTICK) NEGATIVE (Negative); URINE UROBILINOGEN 0.2 E.U./dl (0.2-1.0)
[2018-06-05 02:27] LABS: BACTERIA None Seen /HPF (None Seen); CASTS None Seen /LPF (None Seen); CRYSTALS None Seen /LPF (None Seen); MUCUS 0-3 Light strn/LPF (None Seen); SQUAMOUS 0-3 Few /LPF (0-3); URINE RBC None Seen /HPF (0-2); URINE WBC 0-5 Rare /HPF (0-5)
[2018-06-05 04:00] VITALS: BP 108/52
[2018-06-05 07:56] VITALS: BP 115/85
[2018-06-05 08:29] LABS: HEMATOCRIT 36.6 % (37.0-47.0); HEMOGLOBIN 12.2 gm/dL (12.0-15.0)
--- NOTE | 2018-06-05 09:55 | NUR ---
INITIAL ASSESSMENT: Pt evaluated for d/c planning needs. Reviewed chart. Pt was hospitalized on senior behavioral health unit prior to admission to the hospital. Pt lives in house with spouse and was independent with ADL's prior to admission. Plan is for pt to return home with on d/c from hospital. Will remain available to assist as needed.
--- NOTE | 2018-06-05 11:30 | H ---
[facility] [place] [address] HISTORY AND PHYSICAL Name: EDD HUNTER Nathan Room #: 363-P ADM IN M.R.#: [id number] Admission: 06/04/18 Attend Phys: Dc Renner MD Discharge: Date of : 41 Report #: [id number] THIS REPORT FOR: //name// CC: Phi Adam DATE OF SERVICE: 06/04/2018 CHIEF COMPLAINT: Abdominal pain. HISTORY OF PRESENT ILLNESS: The patient is a 72-year-old female who was admitted about 5 days ago into the Behavioral Health Unit at [facility] because of worsening problems with depression in recent weeks. She was initially seen in the Emergency Room and cleared medically and was treated in the mental health unit for several days and was being readied for discharge when she revealed that she had numerous loose stools and was having bleeding. Upon further evaluation with the patient, she revealed that she had been diagnosed with "colitis" when she was in her 20s and had that problem for a number of years, but had not had it recur great many years, has not had a colonoscopy in over 10 years. She currently describes the pain in her abdomen as feeling as though she needs to have a bowel movement and when she is ready to do so; she develops an extreme pain in both lower quadrants and then feels as though she is unable to go. Other times when she is having urination, she looses bowel control at those times and was very embarrassed having an accident in her room this morning in the mental health unit. She is being admitted for further evaluation and treatment of the bleeding. She also reports that she is having significant perianal pain since the onset of this diarrhea. She denies any other problems including fever, chills or sweats. No chest pain. She has been sleeping better since starting on some new medication while in the mental health unit. PAST MEDICAL HISTORY: Significant for hypothyroidism, depression, obstructive sleep apnea, currently untreated. ALLERGIES: She has no known drug allergies. MEDICATIONS: At time of admission includes vitamin D3, levothyroxine, MiraLax, venlafaxine, quetiapine and multivitamin daily. She does not take aspirin or any other antiplatelet therapy. ALLERGIES: She has no known drug allergies. FAMILY HISTORY: Her father of complications of Creutzfeldt-Julius disease and that is the only medical history we have available. [address] [address] HISTORY AND PHYSICAL Name: EDD HUNTER Room #: 363-P [facility] IN [facility]#: [id number] Admission: 06/04/18 Attend Phys: Dc Renner MD Discharge: Date of : 41 Report #: [id number] SOCIAL HISTORY: The patient is to Mr. Aneesh Hunter. She has 3 children. She is a nonsmoker, nondrinker, does not have any vices and has never abused recreational drugs. REVIEW OF SYSTEMS: See history of present illness. No other significant findings other than the patient's general sense of wellbeing has improved during her stay in the mental health unit. PHYSICAL EXAMINATION: VITAL SIGNS: Show a temperature of 98.4 degrees Fahrenheit, pulse of 89, respirations are 16. The blood pressure is 127/80, oxygen saturation is 96% on room air. Her height is 4 feet 11 inches and her weight today is 146 pounds. GENERAL: The patient is a pleasant, soft spoken, older white female with intermittent abdominal discomfort, but no overt distress at the time of my exam. HEENT: The extraocular muscles are intact. Oropharynx is moist and pink. No lesions, no exudates. NECK: Without adenopathy, thyromegaly, mass or significant bruit. LUNGS: Clear bilaterally. CARDIOVASCULAR: Reveals a regular rhythm without significant murmur, gallop or rub. ABDOMEN: There is tenderness in bilateral lower quadrants to very deep palpation. No palpable masses though and no rebound or guarding. The left lower quadrant was somewhat more uncomfortable than the right during exam today. There is no flank tenderness or pain on either side. EXTREMITIES: Without cyanosis or clubbing or peripheral edema. Peripheral pulses easily palpated in all 4 distal extremities. MENTAL STATUS: The patient is alert. She is fully oriented to person, place and time. No hallucinations, no delusions. The patient's short term memory is mildly limited, but fairly good and her long-term memory is much better. No focal deficits of sensation, motor function, deep tendon reflexes. Cranial cerebellar exams are noted during this visit. RECTAL: Not performed at this time. BREASTS: Not performed at this time. ASSESSMENT AND PLAN: 1. Abdominal pain and hematochezia and pain with defecation -- I am very concerned about this patient having recurrence of colitis, not previously seen her in many years. She is well overdue for colonoscopy and if she has any evidence of severe colon disease, this could be contributing significantly to the depression problem for which she was just hospitalized. I will consult Gastroenterology and I have spoken today with Dr. Kerrie iHckman, will be given a bowel prep hopefully for colonoscopy tomorrow. We will monitor closely for any evidence of further bleeding in her stools. 2. Hypothyroidism. Continue current medication. 3. Major depression with minor neurocognitive deficit. We will continue current medications. [address] [place] [address] HISTORY AND PHYSICAL Name: EDD HUNTER Nathan Room #: 363-P ADM IN M.R.#: [id number] Admission: 06/04/18 Attend Phys: Dc Renner MD Discharge: Date of : 41 Report #: [id number] 4. History of obstructive sleep apnea, awaiting CPAP. 5. Anxiety. We will continue current medications. We will also check stools for any evidence of infectious diarrheas including C. diff and culture for enteric pathogens. <ELECTRONICALLY SIGNED> By: Dc Renner MD 06/05/18 1130 1946 2044 Dc Renner MD /nt
--- NOTE | 2018-06-05 15:14 | NUR ---
Assumed care of patient at 0700. Vitals have been stable. Alert and oriented x4, pleasant. No complaints of pain. Up ad constance in room, steady gait. IVF infusing per orders. Voiding per bathroom, stress incontinence at times. Patient with several loose bowel movements today. No evidence of bleeding. Remains NPO this shift for colonoscopy today. Patient left around 1500 for GI lab. at bedside. Possible DC after colonoscopy, depending on results. Progressing towards POC. Will continue to monitor.
[2018-06-05 16:50] VITALS: BP 141/76
[2018-06-05 20:00] VITALS: BP 122/71
[2018-06-06 04:30] VITALS: BP 119/76
--- NOTE | 2018-06-06 04:45 | NUR ---
SLEPT PART OF SHIFT. TELEMETRY SHOWS SB 40'S WHEN SLEEPING AT TIMES, WHEN AWAKE HEART RATE 60'S. UP TO COMODE NEEDED. COLON PREP COMPLETED LAST NOC. LAST BOWEL MOVEMENT WAS LIQUID ORANGE IN COLOR WITH SMALL STOOL FLECKS. MAINTAIN SAFE ENVIRONMENT. WORKING ON GOALS AND PLAN OF CARE FOR NOC. PROGRESSING SLOWLY TOWARDS DISCHARGE GOALS. NO RECTAL BLEEDING NOTED. CONTINUE TO ASSES.
[2018-06-06 08:00] VITALS: BP 100/57
--- NOTE | 2018-06-06 10:21 | NUR ---
Left for GI lab at 0935.
[2018-06-06 13:46] VITALS: BP 100/57
[2018-06-06 13:50] VITALS: BP 100/57
--- NOTE | 2018-06-06 14:15 | NUR ---
Assumed care of patient at 0700. Vitals have been stable. Tap water enema given prior to leaving floor for colonoscopy, tolerated well. Stools are clear, no solid stool seen. Patient left floor this morning for colonoscopy. Return to floor this afternoon. Patient alert and oriented x4, pleasant. Denies pain. Colonoscopy negative, no bleeding seen. Up with SBA to bathroom, steady gait. Tolerating regular diet. at bedside. Discharge orders received. Patient has had minimal bleeding when using the restroom from rectum. No bleeding visually seen from rectum. Notified Dr. Renner, still okay for discharge. Bleeding most likely from hemorrhoids. Discharge instructions, follow up appointments and prescriptions reviewed with patient and at bedside. Verbalize understanding. IV and telemetry discontinued. Belongings gathered - pt denies having home meds in pharmacy or items locked in security. Patient to transport to private vehicle via wheelchair to [place] with home health.
--- NOTE | 2018-06-07 11:36 | D ---
[facility] [place] [address] DISCHARGE SUMMARY Name: EDD HUNTER Nathan Room #: 363-P [facility] IN M.R.#: [id number] Admission: 06/04/18 Attend Phys: Dc Renner MD Discharge: 06/06/18 Date of : 41 Report #: [id number] THIS REPORT FOR: //name// CC: Dc Renner DATE OF SERVICE: 06/06/2018 HOSPITAL COURSE: The patient was admitted with abdominal pain and hematochezia. Subsequent occult blood test was negative; however, both the patient and the nurse reports seeing blood in stool as the patient was being discharged from the Behavioral Health Unit. Because of prior history of colitis many years ago and the abdominal pain, decision was made to admit her for acute care stay. She underwent a bowel prep that was initially incomplete and had to be repeated. The following day, she had a colonoscopy with Dr. Clive Lundberg. This showed some colitis of the moderate severity in the distal rectum. She also had a descending colon polyp removed. Biopsies have been obtained and are pending at the time of discharge. The patient was also noted to have medium to large internal hemorrhoids that had stigmata of recent bleeding, but no active bleeding. Smaller external hemorrhoids were also noted. She was started on Analpram for management of symptoms. At the time of discharge, I have given her a prescription. Her other medications include vitamin D 5000 units daily, multivitamin daily, Seroquel 50 mg every night and 25 mg in the morning and afternoon and this is a new medication for her, venlafaxine 150 mg by mouth daily and levothyroxine 50 mcg daily for hypothyroidism. DIAGNOSES LIST: Colitis, constipation, hematochezia, depression, hypothyroidism, internal and external hemorrhoids. She has obstructive sleep apnea and the order for the CPAP or BiPAP is pending at time of discharge. FOLLOWUP: With Dr. Renner in the next month. With Dr. Lundberg, followup will be p.r.n. Pending results of her biopsies. <ELECTRONICALLY SIGNED> By: Dc Renner MD 06/07/18 1136 1407 1435 Dc Renner MD /nt
--- NOTE | 2018-06-09 16:10 | PATH ---
[facility] [address] [place] [address] PATHOLOGY RPT PROCEDURE Name: SHYANN MOORE Nathan Room #: 363-P DIS IN M.R.#: [id number] Admission: 06/04/18 Date of : 41 Discharge: 06/06/18 Report #: [id number] Path Case #: [id number] [facility] Accession Number: [id number] . 01 Material submitted: . PART A: POLYP AT DESCENDING COLON PART B: BX OF DISTAL RECTUM R/O ULCERATIVE COLITIS . 01 Clinical history: . Pre-OP DX: Abdominal pain, hematochezia Post-OP DX: Colitis, hemorrhoids, rectal bleeding, colon polyp . 02 Diagnosis: A. Polyp, descending colon, endoscopic biopsy: - Tubular adenoma identified in multiple fragments. - Negative for high grade dysplasia. . B. Large intestinal mucosa, distal rectum, endoscopic biopsy: - Moderate to marked active colitis associated with ulceration, compatible with the provided history of ulcerative colitis. - Negative for dysplasia. LBQ/06/09/2018 . 02 Comment: Part B: Examination shows marked cryptitis, surface epithelial acute inflammation, and expanded lamina propria as well as basal plasmacytosis. Ulceration is identified in two fragments. Crypt abscess formation is present as well. There are no granulomata or viral inclusions identified. Overall, findings are compatible with the provided history of ulcerative colitis (inflammatory bowel disease with distal involvement). There is no dysplasia present. Please correlate clinically. (IUV/db; 06/09/2018) . 02 Electronically signed: . Amelia Marie MD, Pathologist NPI- [id number] . 01 Gross description: . A. Received in formalin labeled "Shyann Moore, polyp at descending colon," are 2 segments of sarmiento soft tissue measuring 1.3 x 0.4 x 0.4 cm in aggregate dimensions and ranging from 0.6 to 0.7 cm in maximum dimension. The specimen is submitted entirely in cassette A1. . B. Received in formalin labeled "Shyann Moore, BX of distal rectum," are multiple segments of sarmiento soft tissue measuring 0.5 x 0.2 x 0.1 cm in aggregate dimensions. The specimen is filtered and entirely submitted in cassette B1. [address] [address] PATHOLOGY RPT PROCEDURE Name: SHYANN MOORE N Room #: 363-P DIS IN M.R.#: [id number] Admission: 06/04/18 Date of : 41 Discharge: 06/06/18 Report #: [id number] Path Case #: [id number] (TSD; 06/06/2018) TOB/TOB . 02 Pathologist provided ICD-10: D12.4, K51.90 . 02 CPT . 125784, 164644 Specimen Comment: A courtesy copy of this report has been sent to Specimen Comment: [phone], . Specimen Comment: Report sent to and Performed at: [address] [facility], [place] [id number] MD Vinay Sorenson MD Phone: [phone] Performed at: [address] [id number] MD Amelia Marie MD Phone: [phone]
== END 2018-06-06 14:34 | disposition home health service (06) | DRG 379 ==
LOC: 3W 17:24 → ENTRNSPT 06-06 14:09 → EDTRNSPTSTS 06-06 14:29 → 3W 06-06 14:34
PROVIDERS: ADMIT Internal Medicine
PROC: 0DJDXZZ Inspection of Lower Intestinal Tract, External Approach (ICD-10-PCS; principal; 2018-06-05)
PROC: 0DBM8ZZ Excision of Descending Colon, Via Natural or Artificial Opening Endoscopic (ICD-10-PCS; 2018-06-06)
PROC: 0DBP8ZX Excision of Rectum, Via Natural or Artificial Opening Endoscopic, Diagnostic (ICD-10-PCS; 2018-06-06)
DX: K92.1 Melena (principal); K52.9 Noninfective gastroenteritis and colitis, unspecified; K59.00 Constipation, unspecified; F32.9 Major depressive disorder, single episode, unspecified; E03.9 Hypothyroidism, unspecified; K64.4 Residual hemorrhoidal skin tags; K64.8 Other hemorrhoids; G47.33 Obstructive sleep apnea (adult) (pediatric); F41.9 Anxiety disorder, unspecified; Z90.710 Acquired absence of both cervix and uterus; Z80.0 Family history of malignant neoplasm of digestive organs
CPT/HCPCS: 10779; 10879; 62110; 62900; 70005

== ENCOUNTER 2019-05-26 10:16 | Emergency (ER) | payer OTHER, MEDICARE ==
[~2019-05-26] VITALS: Ht 152.4 cm; Wt 70.3 kg
[2019-05-26] MEDS ORDERED: XANAX 0.5 MG0.5 MG PO (11:26)
[2019-05-26] MEDS ORDERED: SENNA PLUS TAB1 EACH PO (12:59)
[2019-05-26] MEDS ORDERED: PREDNISONE 20 M20 MG PO (12:59)
[2019-05-26] MEDS ORDERED: NORCO 5-325 TA1 EAC1 PO (12:59)
[2019-05-26 13:58] VITALS: BP 157/107
== END 2019-05-26 14:03 | disposition home or self-care (01) ==
LOC: ER 10:16
DX: M54.31 Sciatica, right side (principal); I10 Essential (primary) hypertension; E03.9 Hypothyroidism, unspecified; F41.9 Anxiety disorder, unspecified; Z90.710 Acquired absence of both cervix and uterus

== ENCOUNTER 2019-11-15 13:30 | Inpatient (IN) | payer OTHER, MEDICARE ==
[~2019-11-15] VITALS: Ht 157.5 cm; Wt 81.6 kg
[~2019-11-15 13:30] MED LIST changes: +NORCO 5-325 TA1 EAC1 PO; +PREDNISONE 20 M20 MG PO; +SENNA PLUS TAB1 EACH PO; +XANAX 0.5 MG0.5 MG PO
[2019-11-15 13:33] VITALS: BP 133/70
[2019-11-15 14:45] LABS: HEMATOCRIT 39.4 % (37.0-47.0); HEMOGLOBIN 13.7 gm/dL (12.0-15.0); MCH 31.9 pg (26.0-34.0); MCHC 34.7 g/dL (28.0-37.0); PLATELET COUNT 205 thou/uL (150-400); RBC 4.28 mil/uL (4.20-5.00); RDW 13.5 % (10.5-14.5); WBC 5.6 thou/uL (4.0-11.0)
[2019-11-15 14:52] LABS: ANION GAP 6 mmol/L (7-16); BUN 11 mg/dL (7-18); CALCIUM 8.7 mg/dL (8.5-10.1); CHLORIDE 104 mmol/L (98-107); CO2 28 mmol/L (21-32); CREATININE 0.7 mg/dL (0.6-1.0); GLUCOSE 97 mg/dL (74-106); POTASSIUM 3.9 mmol/L (3.5-5.1); SODIUM 138 mmol/L (136-145)
[2019-11-15 15:01] LABS: TROPONIN-I <0.06 ng/mL (<0.06)
[2019-11-15 15:04] LABS: ABSOLUTE NEUTROPHILS 3.5 thou/uL (1.4-8.2); PLATELET ESTIMATE NORMAL
[2019-11-15] MEDS ORDERED: LEXAPRO 10 MG T10 M1 PO (15:11)
[2019-11-15] MEDS ORDERED: SEROQUEL 100 M100 M1 PO (15:12)
[2019-11-15] MEDS ORDERED: SEROQUEL 50 MG50 M1 PO (15:13)
[2019-11-15 15:28] LABS: URINE BILIRUBIN NEGATIVE (Negative); URINE BLOOD NEGATIVE (Negative); URINE CLARITY CLEAR; URINE COLOR YELLOW; URINE GLUCOSE-RANDOM* NEGATIVE (Negative); URINE KETONES NEGATIVE (Negative); URINE NITRITE-REFLEX NEGATIVE (Negative); URINE PROTEIN (DIPSTICK) NEGATIVE (Negative); URINE SPECIFIC GRAVITY 1.015 (1.005-1.035); URINE UROBILINOGEN 0.2 E.U./dl (0.2-1.0)
[2019-11-15 15:31] LABS: URINE LEUKOCYTES-REFLEX 1+ (Negative)
[2019-11-15 15:39] LABS: SQUAMOUS >10 Many /LPF (0-3)
[2019-11-15 15:40] LABS: URINE WBC-REFLEX 6-15 Few /HPF (0-5)
[2019-11-15 15:41] LABS: BACTERIA-REFLEX None Seen /HPF (None Seen); CASTS None Seen /LPF (None Seen); CRYSTALS None Seen /LPF (None Seen); URINE RBC None Seen /HPF (0-2)
[2019-11-15] MEDS ORDERED: MECLIZINE HCL25 M1 PO (17:16)
[2019-11-15 17:40] VITALS: BP 147/57
[2019-11-15 18:02] VITALS: BP 147/69
[2019-11-15 18:24] VITALS: BP 148/78
[2019-11-15 19:37] VITALS: BP 140/75
--- NOTE | 2019-11-15 19:44 | NUR ---
PT ADMITTED FROM ER ABOUT 1820PM, PT IS A&OX3, PT'S VS ARE STABLE , PT HAS MEDICATIONS FOR PAIN AND ANXIETY AT ER , RN IS EATING DINNER NOW, RN HAS REPORTED TO NEXT SHIFT.
[2019-11-15 23:43] VITALS: BP 120/59
--- NOTE | 2019-11-16 02:49 | NUR ---
ASSUMED CARE OF PT AT 1900HRS. PT AOX4 BUT CAN BE FORGETFUL AT TIMES. FALL PRECAUTIO IN PLACE. PT WAS ORIENTED TO THE UNIT AND HER ROOM. PT REPORTED SOME PAIN TO HER LEFT RIBS. PT DENIED NAUSEA OR SOA. PT SIGNED OWN CONSENTS AND WAS ABLE TO ANSWER ALL ADMISSION RELATED QUESTIONS. ORDERS RECEIVED AND STARTED. PT PUT ON 2L O2 FOR HS PT USES CPAP AT HOME. WILL BRING HOME CPAP IN THE AM. PT WAS ABLE TO GET COMFORTABLE AND SLEEP PART OF THE SHIFT. VSS AND NO S/S OF ACUTE DISTRESS. WILL CONTINUE TO MONITOR FOR CHANGES.
[2019-11-16 04:32] VITALS: BP 92/49
--- NOTE | 2019-11-16 07:26 | EKG ---
[facility] [place] [address] ELECTROCARDIOGRAM REPORT Name: EDD HUNTER Room #: 462-P ADM IN M.R.#: [id number] Admission: 11/15/19 Attend Phys: Dc Renner MD Discharge: Date of : 41 Report #: [id number] THIS REPORT FOR: cc: Dc Renner MD, Mark A. MD Lundgren, Craig H. 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1945 Requested By: Patrick Harper Order Number: [id number] MD: Herbert Mcmahon Measurements Intervals [place] Rate: 59 P: 0 NE: 239 QRS: -54 QRSD: 129 T: 69 QT: 444 QTc: 440 Interpretive Statements Sinus rhythm Prolonged NE interval Left bundle branch block Baseline wander in lead(s) III Compared to ECG 06/15/2016 07:18:06 No significant changes Electronically Signed On 11-16-2019 7:26:03 CDT by Herbert Mcmahon [email or web address] <ELECTRONICALLY SIGNED> By: Herbert Mcmahon MD, [facility] 11/16/19 0726 1433 1433 Herbert Mcmahon MD, FAC /EPI
[2019-11-16 07:37] VITALS: BP 133/76
--- NOTE | 2019-11-16 12:01 | NUR ---
PT ADMITTED RELATED TO VERTIGO; FALL W/L SIDED PAIN, RIB FX? AND T11 ENDPLATE FX. CM REVIEWED CHART AND SPOKE WITH CARE TEAM. CM CALLED AND SPOKE WITH PT AT BEDSIDE THIS DAY. PT APPEARED O BE A&O X4. CM ROLE INTRODUCED. PT INDICATED SHE LIVES IN A HOUSE WITH HER SPOUSE WITH 1 STEP TO ENTER THROUGH THE FRONT AND 1 TO ENTER THROUGH GARAGE. PT INDICATED SHE AND HER SPOUSE ARE LOOKING TO GET A LIFT CHAIR INSTALLED TO [employer]. 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 PT INDICATED SHE HAD HH IN THE PAST CAN'T RECALL PROVIDER. PT INDICATED SHE PLANS TO RETURN HOME ONCE MEDICALLY STABLE. CM TO FOLLOW INDICATED WITH DC PLANNING.
[2019-11-16 16:40] VITALS: BP 138/72
[2019-11-16 20:02] VITALS: BP 144/82
--- NOTE | 2019-11-16 20:40 | NUR ---
PT IS A&OX3, PT 'S VS ARE STABLE , BUT PT STLL HAS DIZZY WHEN PT WALKS.
--- NOTE | 2019-11-16 21:13 | H ---
[facility] [address] [address] HISTORY AND PHYSICAL Name: EDD HUNTER Room #: 462-P ADM IN M.R.#: [id number] Admission: 11/15/19 Attend Phys: Dc Renner MD Discharge: Date of : 41 Report #: [id number] THIS REPORT FOR: cc: Dc Renner MD, Mark A. MD Angles, Mark A. MD ~ CC: Dc Renner Alicea DATE OF SERVICE: 11/15/2019 CHIEF COMPLAINT: Dizziness. HISTORY OF PRESENT ILLNESS: The patient is a 74-year-old female from [place], [place], who, upon arising from bed this morning, fell on her left side on top of a bedside nightstand and according to the pictures her brought with her, broke the nightstand in several pieces. Subsequent to that, she has also had left chest pain anteriorly. The dizziness actually began before she got out of bed. She noticed that the room was spinning and this only got worse when she changed position and got up. Her brought her to the Emergency Room for further evaluation and treatment. PAST MEDICAL HISTORY: Includes primary hypertension, hypothyroidism, major depression and anxiety. ALLERGIES: She has no known drug allergies. PAST SURGICAL HISTORY: Includes a hysterectomy for benign cause. FAMILY HISTORY: Significant for her father dying of prion disease. There is also a strong family history of mental health issues. SOCIAL HISTORY: The patient has been to Aneesh DiGeorge times many years, but they have no children together. She is a nonsmoker, nondrinker, has no vices. REVIEW OF SYSTEMS: The patient reports that recently her Seroquel dosing was increased because of problems she was having with continued depression and anxiety issues. She does see Dr. Alicea for routine followup of this problem and medication adjustments. Otherwise, she denies any problems with shortness of breath. The only chest pain she has is subsequent to the fall on the front of her left side of her lower chest. She denies any back pains or headaches. She denies any confusion. She denies any abdominal pain or change in bowel or bladder habits recently. She has had no other falls lately. [facility] [address] [place] [address] HISTORY AND PHYSICAL Name: EDD HUNTER Room #: 462-P [facility] IN [facility]#: [id number] Admission: 11/15/19 Attend Phys: Dc Renner MD Discharge: Date of : 41 Report #: [id number] PHYSICAL EXAMINATION: VITAL SIGNS: In the Emergency Room showed a pulse of 61 with blood pressure of 133/70, her temperature was 36.4 degrees centigrade with a respiratory rate of 19 on room air and pulse oximetry of 98%. Reported weight of 150 pounds. (The patient does report some weight loss, but this is not quantified). GENERAL: The patient is a pleasant, well-developed, well-nourished white female who is somewhat anxious. SKIN: No masses or rashes or breakdown. HEENT: The extraocular muscles are intact. There is no lid lag or exophthalmus. Her eyes are not injected. Sinuses are nontender. Hearing is grossly normal. Oropharynx is moist and pink without lesions or exudates. NECK: Supple. There is no adenopathy or thyromegaly or mass or bruit. EXTREMITIES: Without cyanosis, clubbing or edema. LUNGS: Clear to auscultation bilaterally. CARDIOVASCULAR: Reveals a regular rhythm. ABDOMEN: Soft. Bowel sounds are present. No visceromegaly or masses. On examination of the thorax, there is marked tenderness in the left anterior midclavicular line inferiorly. It is in fact tender with minimal pressure in that area, but there is no rash or evidence of bruising today. The spine was completely nontender from upper thorax to sacrum. EXTREMITIES: Peripheral pulses are easily palpated in all 4 distal extremities. There is no significant cyanosis, clubbing or edema. MENTAL STATUS: The patient is hyperalert. No hallucinations or delusions. She is quite anxious to casual observation. NEUROLOGIC: Cranial nerves II-XII are intact. Craniocerebellar exam is normal. The deep tendon reflexes are normal throughout. The sensory and motor exams were also normal in both upper and both lower extremities. LABORATORY DATA: Workup in the Emergency Room includes an EKG that showed a sinus rhythm, first degree AV block and nonspecific intraventricular conduction delay, no evidence of ischemia. Labs showed on chemistry; sodium 138, potassium 3.9, chloride 104, bicarbonate 28, BUN 11, creatinine 0.7, anion gap was calculated at 6 and slightly low. The glucose was 97 nonfasting, the estimated GFR was 81, calcium was 8.7 and troponin less than 0.06. Hematology, the patient had a white blood cell count of 5600 with hemoglobin of 13.7, hematocrit of 39.4, normal red blood cell indices, the platelet count is 205,000. The manual differential showed 59% segmented neutrophils, 4% band neutrophils, 22% lymphocytes, 14% monocytes, 1% basophils and no eosinophils. The absolute neutrophil count was normal at 3500. The urinalysis showed clear yellow urine with pH of 8 and specific gravity of 1.015. The dipstick showed 1+ leukocyte esterase. Final microscopic exam, there were 6-15 white blood cells, many epithelial cells, squamous epithelial cells and no evidence of bacteria. Urine culture was received by the lab and is pending. CT scan was done of the chest that showed a superior endplate fracture of T11, which is reported as somewhat acute and showing a 10% volume loss. Also cholelithiasis and also pleural [facility] [address] [place] [address] HISTORY AND PHYSICAL Name: EDD HUNTER Nathan Room #: 462-P ADM IN .R.#: [id number] Admission: 11/15/19 Attend Phys: Dc Renner MD Discharge: Date of : 41 Report #: [id number] parenchymal scarring in the lateral right costophrenic angle. CT scan of the head without contrast showed cerebral atrophy without evidence of intracranial hemorrhage or depressed skull fracture. ASSESSMENT AND PLAN: 1. Left chest wall pain -- I believe the patient has rib fracture on the left side and has been in a great deal of pain, requiring narcotic analgesics to get adequate pain relief. She does not have a history of drug abuse. At this point, we will work on pain management and have her seen by Occupational and Physical Therapy in the morning to help provide strategies to keep her from falling again. 2. Benign paroxysmal positional vertigo -- the patient was debilitated to the point of not being able to get up and walk while evaluated in the Emergency Room. Given that the patient lives at home with her significantly debilitated octogenarian , we decided to hospitalize her for her safety as well as his. She has been started on meclizine and I did demonstrate for her the vestibular exercises to see if we can help get her symptoms under control sooner. She might benefit from continued therapy after she goes home. 3. Hypertension -- we will follow and manage with medications as needed. 4. Major depressive disorder with severe generalized anxiety -- the patient suffers from this problem which is also being significantly augmented by the stressor of being in a lawsuit with the city where the patient and her reside. Apparently, this has been ongoing for over 10 years and in spite of her great fears about having to go to court to testify herself, she has been pressed repeatedly by the clinical writer who is involved in the case and this further aggravates her mental health issues. I only recently increased her quetiapine dosing regimen. Given its sedating effects, I am ____ to increase it any further at this time and will likely decrease the dose a bit and so her vertigo resolves. 5. Hypothyroidism. Continue current medications. She is adequately treated as per her recent lab tests and we will not repeat TSH at this time. <ELECTRONICALLY SIGNED> By: Dc Renner MD 11/16/192112 [id number] Dc Renner MD /nt
--- NOTE | 2019-11-17 03:49 | NUR ---
ASSUMED CAREO OF PT AT 1900HRS. PT AOX4 WITH SOME FORGETFULNESS. FALL PRECAUTION IN PLACE. PT ENCOURAGED TO WALK TO THE BATHROOM. PT DENIED PAIN, NAUSEA OR SOA. PT USED HOME BIPAP AT HS. PT WAS ABLE TO GET COMFORTABLE AND SLEEP PART OF THE SHIFT. VSS AND NO S/S OF ACUTE DISTRESS. WILL CONTINUE TO MONITOR.
[2019-11-17 08:05] VITALS: BP 113/67
[2019-11-17 16:22] VITALS: BP 136/73
[2019-11-17] MEDS ORDERED: SEROQUEL 50 MG50 MG PO ×2 (17:28)
[2019-11-17] MEDS ORDERED: MIRALAX17 GM PO (17:29)
--- NOTE | 2019-11-17 17:58 | D ---
[facility] [address] [address] DISCHARGE SUMMARY Name: EDD HUNTER Room #: 462-P [facility] IN ..#: [id number] Admission: 11/15/19 Attend Phys: Dc Renner MD Discharge: Date of : 41 Report #: [id number] THIS REPORT FOR: cc: Dc Renner MD, Mark A. MD Angles, Mark A. MD ~ THIS REPORT FOR: //name// CC: Nixon Renner DATE OF SERVICE: 11/17/2019 HOSPITAL COURSE: The patient is a 74-year-old white female who on the date of admission had her first ever episode of vertigo and upon arising out of bed, fell over and broke the bedside table with the weight of her body. Ever since that fall, she has had a left anterior inferior chest wall pain and despite otherwise negative radiographic evaluations. It is very likely that she has a cracked rib. She was treated with meclizine for her dizziness as well as educated on various types of vestibular exercises to do to help her get over the vertigo more quickly. By the date of discharge, her dizziness is much better. She has also seen by physical and occupational therapy to give her a good assessment of her physical skills and tips on how to avoid falls and maintain her balance. The meclizine patch at night has been very helpful in helping her to control the pain. Hydrocodone from time to time has been available if needed, but she has not needed as much. Her medications at the time of discharge are as follows: Vitamin D 5000 units by mouth daily, Lexapro 10 mg by mouth daily, levothyroxine 50 mcg by mouth daily, topical lidocaine in the form of Aspercreme as needed to her left chest wall area of discomfort is available [id number], meclizine 25 mg 3 times daily as needed for dizziness, MiraLax 17 g by mouth daily in a glass of water, quetiapine 100 mg by mouth nightly at bedtime and 50 mg by mouth every morning. She also has 50 mg available every 4 hours as needed for episodes of anxiety or agitation. Failing the Seroquel, she can also use Xanax 0.5 mg up to 3 times daily as needed for breakthrough anxiety. I explained to the patient and her again that the Xanax is only to be used in the event of severe anxiety or agitation problems that do not respond to the scheduled and p.r.n. quetiapine doses. I would like to see the patient in followup in my office in about [address] [address] DISCHARGE SUMMARY Name: EDD HUNTER Room #: 462-P [facility] IN ..#: [id number] Admission: 11/15/19 Attend Phys: Dc Renner MD Discharge: Date of : 41 Report #: [id number] she will call the office to make arrangements. DISCHARGE DIAGNOSES: As follows: 1. Benign positional paroxysmal vertigo. 2. Left rib fracture. 3. Gait instability. 4. Hypothyroidism. 5. Chronic constipation. 6. Severe anxiety and depression. Follow up for the patient in a couple of weeks. She also sees her psychiatrist regularly for followup and she is to continue doing the vestibular exercises on a daily basis until the dizziness problem resolved completely. <ELECTRONICALLY SIGNED> By: Dc Renner MD 11/17/19 1758 1719 1732 Dc Renner MD /nt
[2019-11-17 18:04] VITALS: BP 136/73
== END 2019-11-17 18:24 | disposition home or self-care (01) | DRG 206 ==
LOC: ER 13:30 → EROBS 17:43 → 4W 17:43
PROVIDERS: Emergency Medicine; ADMIT Internal Medicine; ATTEND Internal Medicine
DX: S22.32XA Fracture of one rib, left side, initial encounter for closed fracture (principal); H81.10 Benign paroxysmal vertigo, unspecified ear; Z90.710 Acquired absence of both cervix and uterus; I10 Essential (primary) hypertension; E03.9 Hypothyroidism, unspecified; S20.219A Contusion of unspecified front wall of thorax, initial encounter; F32.9 Major depressive disorder, single episode, unspecified; K59.09 Other constipation; F41.1 Generalized anxiety disorder; W18.39XA Other fall on same level, initial encounter; Y93.89 Activity, other specified; Y92.89 Other specified places as the place of occurrence of the external cause; Y99.8 Other external cause status; Z79.899 Other long term (current) drug therapy
CPT/HCPCS: 10040

== ENCOUNTER 2020-06-14 12:46 | Inpatient (IN) | payer OTHER, MEDICARE ==
[~2020-06-14] VITALS: Ht 152.4 cm; Wt 81.0 kg
[~2020-06-14 12:46] MED LIST changes: +LEXAPRO 10 MG T10 M1 PO; +MECLIZINE HCL25 M1 PO; +SEROQUEL 100 M100 M1 PO; +SEROQUEL 50 MG50 M1 PO
[2020-06-14 12:59] VITALS: BP 163/92
[2020-06-14 13:27] LABS: ABSOLUTE NEUTROPHILS 3.3 thou/uL (1.4-8.2); BASOPHILS 0.8 % (0.0-2.0); HEMATOCRIT 44.3 % (37.0-47.0); HEMOGLOBIN 15.1 gm/dL (12.0-15.0); LYMPHOCYTES 29.5 % (24.0-44.0); MCH 31.2 pg (26.0-34.0); MCHC 34.1 g/dL (28.0-37.0); MCV 91.3 fL (80.0-100.0); MONOCYTES 13.7 % (1.0-8.0); PLATELET COUNT 239 thou/uL (150-400); RBC 4.85 mil/uL (4.20-5.00); RDW 13.8 % (10.5-14.5); WBC 5.9 thou/uL (4.0-11.0)
[2020-06-14 13:32] LABS: ANION GAP 10 mmol/L (7-16); BUN 8 mg/dL (7-18); CHLORIDE 103 mmol/L (98-107); CO2 27 mmol/L (21-32); CREATININE 0.8 mg/dL (0.6-1.0); GLUCOSE 106 mg/dL (74-106); POTASSIUM 3.5 mmol/L (3.5-5.1); SODIUM 140 mmol/L (136-145)
[2020-06-14 13:42] LABS: ALBUMIN 3.7 g/dL (3.4-5.0); PROTIME 10.7 Seconds (9.3-11.4); SGOT 20 U/L (15-37); SGPT 16 U/L (14-59); TOTAL PROTEIN 6.8 g/dL (6.4-8.2)
[2020-06-14 13:56] LABS: TROPONIN-I <0.06 ng/mL (<0.06)
[2020-06-14 14:52] LABS: URINE BILIRUBIN NEGATIVE (Negative); URINE BLOOD NEGATIVE (Negative); URINE CLARITY CLEAR; URINE COLOR YELLOW; URINE GLUCOSE-RANDOM* NEGATIVE (Negative); URINE KETONES NEGATIVE (Negative); URINE LEUKOCYTES-REFLEX TRACE (Negative); URINE NITRITE-REFLEX NEGATIVE (Negative); URINE PROTEIN (DIPSTICK) NEGATIVE (Negative); URINE SPECIFIC GRAVITY <= 1.005 (1.005-1.035); URINE UROBILINOGEN 0.2 E.U./dl (0.2-1.0)
--- NOTE | 2020-06-14 15:25 | EKG ---
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 : 1945 Requested By: Praveen Napoles Order Number: [id number] MD: Elio Nicholson Measurements Intervals [place] Rate: 83 P: 69 OK: 252 QRS: -56 QRSD: 138 T: 95 QT: 398 QTc: 468 Interpretive Statements Sinus rhythm Prolonged OK interval Left bundle branch block Compared to ECG 11/15/2019 14:33:41 No significant changes Electronically Signed On 06-14-2020 15:25:39 [employer] by Elio Nicholson [email or web address] <ELECTRONICALLY SIGNED> By: Elio Nicholson MD, MERGED WITH [facility] 06/14/20 1525 1341 1341 Elio Nicholson MD, FACC /EPI
[2020-06-14 21:10] VITALS: BP 165/83
[2020-06-14 21:11] VITALS: BP 143/86
[2020-06-14 22:12] VITALS: BP 151/68
[2020-06-15 04:45] VITALS: BP 144/82
[2020-06-15 05:05] LABS: CHOLESTEROL 220 mg/dL (<200); HDL CHOLESTEROL 58 mg/dL (>40); LDL CHOLESTEROL 147 mg/dL (<100); TC:HDL 3.8 Ratio (Not establshd); TRIGLYCERIDE 78 mg/dL (<150); VLDL 16 mg/dL (<40)
[2020-06-15 05:20] LABS: SERUM ASSESSMENT Clear
[2020-06-15 07:09] LABS: GLYCOHEMOGLOBIN (HGB A1C) 5.1 % (4.8-5.6)
[2020-06-15 07:26] VITALS: BP 157/91
--- NOTE | 2020-06-15 08:46 | 2DMMODE ---
[facility] [place] [address] 2 D/M-MODE ECHOCARDIOGRAM Name: EDD HUNTER Room #: 213-P ADM IN M.R.#: [id number] Admission: 06/14/20 Attend Phys: Trinidad Christianson MD Discharge: Date of : 43 Report #: [id number] THIS REPORT FOR: cc: Dc Renner MD, Mark A. MD Santiago, Patrick MD [facility] ~ APPROVED REPORT Study performed: 06/15/2020 07:36:33 EXAM: Comprehensive 2D, Doppler, and color-flow Echocardiogram Patient Location: Bedside Room #: 213 BSA: 1.78 HR: 84 bpm BP: 144/82 mmHg Rhythm: NSR Other Information Study Quality: Adequate Indications CVA. Hx: HTN Echo Enhancing Agent Indication: Rule out Shunt Agent(s) / Amount(s) Used: Agitated Saline 7 cc 2D Dimensions RVDd: 28.94 mm IVSd: 13.16 (7-11mm) LVOT Diam: 20.15 (18-24mm) LVDd: 35.56 mm PWd: 13.01 (7-11mm) LVDs: 25.51 (25-40mm) Aortic Root: 30.95 mm Volumes Left Atrial Volume (Systole) Single Plane 4CH: 35.13 mL Single Plane 2CH: 35.01 mL LA ESV Index: 21.00 mL/m2 Aortic Valve [facility] [address] [place] [address] 2 D/M-MODE ECHOCARDIOGRAM Name: EDD HUNTER Nathan Room #: 213-P [facility] IN [facility].#: [id number] Admission: 06/14/20 Attend Phys: Shannan Loja Discharge: Date of : 41 Report #: [id number] AoV Peak David.: 1.44 m/s AO Peak Gr.: 8.33 mmHg LVOT Max P.50 mmHg LVOT Max V: 1.17 m/s TRAM Vmax: 2.59 cm2 Mitral Valve IVRT: 76.12 ms Pulmonary Valve PV Peak David.: 1.39 m/s PV Peak Gr.: 7.78 mmHg Pulmonary Vein P Vein S: 0.58 m/s P Vein A: 0.39 m/s P Vein D: 0.32 m/s P Vein A Dur.: 69.2 msec P Vein S/D Ratio: 1.81 Tricuspid Valve TR Peak David.: 2.46 m/s RAP Estimate: 5.00 mmHg TR Peak Gr.: 24.28 mmHg PA Pressure: 29.00 mmHg Left Ventricle The left ventricle is normal size. There is normal LV segmental wall motion. Mild concentric left ventricular hypertrophy. Left ventricular systolic function is normal. LVEF is 55-60%. Probable mild diastolic dysfunction is present. Right Ventricle The right ventricle is normal size. The right ventricular systolic function is normal. Atria The left atrium size is normal. No shunting noted with contrast bubble injection. The right atrium size is normal. Aortic Valve Aortic valve leaflets are mildly thickened. No aortic regurgitation is present. There is no aortic valvular stenosis. Mitral Valve Mitral valve leaflets are mildly thickened and calcified. Mild mitral annular calcification. There is no mitral valve regurgitation noted. No evidence of mitral valve stenosis. Tricuspid Valve The tricuspid valve is normal in structure. Trace tricuspid [facility] [address] [place] [address] 2 D/M-MODE ECHOCARDIOGRAM Name: EDD HUNTER Room #: 213-P [facility] IN .R.#: [id number] Admission: 06/14/20 Attend Phys: Shannan Loja Discharge: Date of : 41 Report #: [id number] regurgitation. Estimated PAP is 30mmHg. Pulmonic Valve Pulmonic valve is not well visualized. Great Vessels The aortic root is normal in size. Ascending aorta is not well visualized. IVC is normal in size and collapses >50% with inspiration. Pericardium There is no pericardial effusion. <Conclusion> Normal left ventricular size/wall thickness EF 55% Normal atrial size Normal right ventricular size/function Color-flow Doppler study was performed of the aortic/mitral/tricuspid/pulmonary valve Aortic valve mildly thickened, no stenosis Mild mitral annular calcification Trace tricuspid valve insufficiency Pulmonary artery systolic pressure estimated at 30 mmHg No pericardial effusion <ELECTRONICALLY SIGNED> By: Elio Nicholson MD, FACC 06/15/20845 5 5 Elio Nicholson MD, [facility] /INF
[2020-06-15 11:12] VITALS: BP 146/78
[2020-06-15 15:49] VITALS: BP 122/68
[2020-06-15 20:01] VITALS: BP 150/82
[2020-06-16 05:22] VITALS: BP 155/102
[2020-06-16 06:24] VITALS: BP 156/92
[2020-06-16 07:22] VITALS: BP 166/98
[2020-06-16] MEDS ORDERED: LIPITOR40 MG PO (14:15)
[2020-06-16] MEDS ORDERED: ASPIR 8181 MG PO (14:15)
[2020-06-16 15:07] LABS: FOLIC ACID 11.6 ng/mL (8.6-58.9)
--- NOTE | 2020-06-22 12:29 | HC ---
[facility] [place] [address] CONSULTATION Name: EDD HUNTER Room #: 213-P [facility] IN M.R.#: [id number] Admission: 06/14/20 Attend Phys: Trinidad Christianson MD Discharge: 06/16/20 Date of : 41 Report #: [id number] THIS REPORT FOR: cc: Dc Renner MD, Mark A. MD Khosla, Parveen K. MD ~ DATE OF SERVICE: 06/14/2020 HISTORY OF PRESENT ILLNESS: This is a 74-year-old female patient who was evaluated by me for the possibility of stroke. The patient's history is pretty unusual. The patient had about 4 falls during 1 year. Why the fall occurred is not totally clear. Yesterday, she became dizzy and had difficult time walking. She apparently never hit her head, but there may have been some confusion. It is not clear what her overall memory is. REVIEW OF SYSTEMS: A 14-point review of system was carried out. She had these 2 falls. I do not get a good history that this patient has dementia. One of the records says that she had right sided weakness. Her blood sugar was normal. She does have a history of anxiety, hypertension, hypothyroidism, depression, hysterectomy. This was her relevant 14-point review of system. She is on Seroquel. I am not sure who is prescribing Seroquel and the indication for that, but looks like that is for anxiety and agitation. She was also given meclizine yesterday. This was her relevant 14-point review of system. PAST MEDICAL HISTORY: Positive for 3 other falls. FAMILY HISTORY: Unremarkable. SOCIAL HISTORY: According to the , she does not drink any alcohol. PHYSICAL EXAMINATION: Indicate that initially she said it is June, but then she corrected and she said it is May. She knew what hospital she is in and who the president is, plus speech looks intact to me. Cranial nerve examination 2-12 looks unremarkable. She moves all four extremities, and in fact moves symmetrically for me. Her lumihb-yg-mpft and wssm-ix-fraw looks unremarkable. Her position sense is intact. Reflexes are symmetrical. Plantar is withdrawal. There is no neck tenderness or any meningeal sign. Cardiac and respiratory examinations appear noncontributory. She is moderately built individual. She does not have any thyroid mass or carotid bruit. Cardiac and respiratory examinations appear noncontributory. She had a CT angiography and that does not show any abnormality. IMPRESSION: Pretty unusual history and I am not sure what the etiology of the patient's symptom is. She will need some further workup. We will ask physical therapy to ambulate this patient and see how she does. I will get an MRI of the [facility] [address] [place] [address] CONSULTATION Name: EDD HUNTER Nathan Room #: 213-P DIS IN M.R.#: [id number] Admission: 06/14/20 Attend Phys: Trinidad Christianson MD Discharge: 06/16/20 Date of : 41 Report #: [id number] brain done. Further workup will depend upon the outcome of these testing. All of it was discussed with the patient. The patient wanted to eat something and I conveyed that to the nurses. Thank you very much for this referral. <ELECTRONICALLY SIGNED> By: Koffi Banegas MD 06/22/20 1229 [id number] Koffi Banegas MD /nt
== END 2020-06-16 16:30 | DRG 551 ==
LOC: ER 12:46 → EROBS 16:32 → 2N 16:32
PROVIDERS: Emergency Medicine; ADMIT Hospitalist; ATTEND Hospitalist
PROC: 5A09457 Assistance with Respiratory Ventilation, 24-96 Consecutive Hours, Continuous Positive Airway Pressure (ICD-10-PCS; principal; 2020-06-14)
DX: S22.089A Unspecified fracture of T11-T12 vertebra, initial encounter for closed fracture (principal); G93.41 Metabolic encephalopathy; G45.9 Transient cerebral ischemic attack, unspecified; F41.9 Anxiety disorder, unspecified; I10 Essential (primary) hypertension; E03.9 Hypothyroidism, unspecified; F32.9 Major depressive disorder, single episode, unspecified; M54.31 Sciatica, right side; Z20.822 Contact with and (suspected) exposure to COVID-19; E78.5 Hyperlipidemia, unspecified; G31.84 Mild cognitive impairment of uncertain or unknown etiology; M54.16 Radiculopathy, lumbar region; M19.90 Unspecified osteoarthritis, unspecified site; W18.39XA Other fall on same level, initial encounter; Z90.710 Acquired absence of both cervix and uterus; Z80.0 Family history of malignant neoplasm of digestive organs; Y93.89 Activity, other specified; Y92.89 Other specified places as the place of occurrence of the external cause; Y99.8 Other external cause status
CPT/HCPCS: 10081

== ENCOUNTER 2020-06-16 13:59 | Inpatient (IN) | payer OTHER, MEDICARE ==
[~2020-06-16] VITALS: Ht 152.4 cm; Wt 78.7 kg
--- NOTE | ~2020-06-16 | PLAN ---
[facility] [place] [address] [address] [address] REHAB UNIT PLAN OF CARE Name: EDD HUNTER Room #: 513-P ADM IN M.R.#: [id number] Admission: 06/16/20 Attend Phys: Praveen Carvajal MD Discharge: Date of : 41 Report #: [id number] THIS REPORT FOR: cc: Dc Renner MD, Mark A. MD Smithson, David G. MD ~ DATE OF SERVICE: 06/20/2020 PROGRESS NOTE AND OVERALL PLAN OF CARE SUBJECTIVE: The patient is seen back in followup. She had a rough night with some agitation, paranoia, actually was given a dose of IM Haldol. It is noted that she becomes quite fearful when she wakes up in a strange place. Her was contacted. Note that Psychiatry has been consulted. She seems pleasant this morning, cooperative, in no distress. Did not remember the evening. No focal calf swelling. Functionally, she is standby assistance with sit to stand. Gait is min assist 75 feet without a device. She has gone up and down 16 steps min assist. Lower body dressing is min assist. In speech, she has moderate cognitive deficits with severe memory deficits. ASSESSMENT: 1. Lumbar radiculopathy with right lower extremity weakness and falls. 2. Vertigo. 3. Acute on chronic T11 compression fracture. 4. Degenerative arthritis. 5. Depression with anxiety. 6. Hypothyroidism. 7. Question of early dementia. 8. Hyperlipidemia. PLAN: The overall plan of care is based on the preadmission screen, post-admission physician evaluation and information garnered from therapy assessments. 1. Estimated length of stay will be hopefully fairly short, potentially later this week depending upon team conference results tomorrow. 2. Medical prognosis is reasonably good. 3. Anticipated interventions includes the interdisciplinary acute inpatient rehabilitation program. 4. Anticipated functional outcomes would be for the patient to become modified independent with transfers, mobility, ADLs and to improve further as far as cognitive issues, so she can return back to the home setting. She does have moderate cognitive deficits with severe memory deficits. 5. Discharge destination would be back to the home setting with her . 6. Expected therapy by discipline includes PT, OT and speech 1 hour per day each five days a week throughout the duration of the acute inpatient [place] [id number] REHAB UNIT PLAN OF CARE Name: EDD HUNTER Room #: 513-P [facility] IN [facility].#: [id number] Admission: 06/16/20 Attend Phys: Praveen Carvajal MD Discharge: Date of : 41 Report #: [id number] rehabilitation stay. The patient's prognosis for significant practical improvement within a reasonable period of time appears good. Given the patient's complex medical condition and risk of further medical complication, rehabilitation services could not be safely provided at a lower level of care such as a halfway facility. ADDENDUM: Psychiatry to be involved. Team conference tomorrow. She is doing better functionally and hopefully we can discharge her home soon as she will likely do better in the home setting. By: [id number] Praveen Carvajal MD /nt
[2020-06-16] MEDS ORDERED: ASPIR 8181 MG PO (14:15)
[2020-06-16] MEDS ORDERED: LIPITOR40 MG PO (14:15)
[2020-06-16 17:15] VITALS: BP 152/99
--- NOTE | 2020-06-16 18:40 | NUR ---
NEW ADMISSION FROM CCU, ARRIVED TODAY AT 1700 WITH HER SPOUSE. ALERT AND ORIENTATED, FORGEFUL AND CONFUSED INTERMITTENTLY. VSS. ASSESSMENT AND ADMISSION DONE AND COMPLETED. PT DENIES ANY PAIN. SKIN INTACT WITH NO SIGNS OF TEAR OR BREAKDOWN. NO IV. APPETITE FAIR, ATE 50% OF DINNER TODAY. SPOUSE GAVE MOST OF THE INFORMATION REGARDING ADMISSION. ROOM ORIENTATION GIVEN, REHAB HANDBOOK GIVEN, PT SIGNED CONSENTS, CALL LIGHT WITHIN REACH, BED ALARM ON.
[2020-06-16 19:06] VITALS: BP 149/78
--- NOTE | 2020-06-17 02:05 | NUR ---
ASSESSMENT: PT REMAIN ALERT AND ORIENT TIMES TWO. PT IS CONFUSED TO SITUATION AND TIME. PT THOUGHT THAT HER WAS LAYING NEXT TO HER AND WOULD NOT WAKE UP. SHE EVEN THOUGHT THAT HE MAY BE "". THIS RN CALLED THE PT'S AND ALLOWED THEM TO TALK, TO REASSURE PT THAT HER WAS ALIVE AND WELL. PT WAS GIVEN A XANAX AND PLACED ON THE CPAP, SHORTLY SHE WAS ASLEEP. HOURLY ROUNDING WAS CONDUCTED, FINDING THIS PT WITH CPAP INTACT AND ASLEEP. VSS, AFEBRILE. UP TO BR WITH GB/WALKER/SBA. TOLERATING PO INTAKE. DENIES PAIN. SLOW PROGRESS TOWARDS DC GOALS, WILL CONTINUE TO MONITOR.
[2020-06-17 05:56] LABS: HEMATOCRIT 44.6 % (37.0-47.0); HEMOGLOBIN 14.5 gm/dL (12.0-15.0); MCHC 32.5 g/dL (28.0-37.0); MCV 92.5 fL (80.0-100.0); RBC 4.82 mil/uL (4.20-5.00); RDW 14.1 % (10.5-14.5); WBC 8.2 thou/uL (4.0-11.0)
[2020-06-17 06:12] LABS: CALCIUM 9.6 mg/dL (8.5-10.1); CREATININE 0.8 mg/dL (0.6-1.0)
[2020-06-17 07:52] VITALS: BP 142/82
--- NOTE | 2020-06-17 11:05 | NUR ---
met with patient and spouse at bedside. Patient admits with vertigo to acute care unit then transitioned to 5N for rehab. Patient resides with spouse. All needs on one level. 3 steps to enter home. In 2019 admitted to senior behavioral health unit for depression. Patient at this time awaiting for her counseling to call for zoom meeting. patient see psychtrist Dr Menodza on outpatient basis. Patient has laundry in basement which spouse reports he does not let patient go to basement. 13 steps to laundry. Since May 18 patient with approx 8 falls. She uses a walker for ambulation. Spouse has 2 chidren. Have uses [facility] in past and agreeable to use again. Patient with dementia. Spouse assist with timeling seating captain history for patient.
--- NOTE | 2020-06-17 11:31 | NUR ---
Nutrition: pt admitted to rehab unit with lumbar radiculopathy with RLE weakness, falls. Received consult related to poor appetite. Pt reports she receives too much food here as is used to eating 2 meals/day at home which is normal for her. Ate 50% dinner last night and most of breakfast this am. Likes the meals. On mechanically altered chopped diet per ST for mild dysphagia. Spouse reports pt lost 30# last year due to depression but has since gained it all back. Vitamin D status pending. Pt is low nutrition risk.
--- NOTE | 2020-06-17 13:48 | NUR ---
ASSUMED CARE AT 0700 THIS MORNING. PT. IN BED. WHEN SHE AWAKENED SHE WAS EXTREMELY CONFUSED. SHE KEPT ASKING TO TALK TO HER . PHONE WAS DIALED AND GIVEN TO HER. SHE WAS AGITATED. NURSE SAT WITH THE PATIENT DUE TO THE AGITATION AND CONFUSION SHE WAS EXHIBITING. PT. STOOD UP AND ATTEMPTED TO PUSH PAST THE RN. PRN XANAX GIVEN TO HER. SHE STOPPED AND THE HUSBANDS NUMBER WAS DIALED. HE WAS ASKED IF HE COULD COME VISIT WITH THE PT. HE STATED HE WOULD. SHE GOT UP IN CHAIR BESIDE THE BED AND WAS THERE WHEN ARRIVED. PT. AT THAT TIME BECAME ORIENTED AND NOT CONFUSED. SHE RECALLED BEING CONFUSED AND AGITATED THIS MORNING AND YESTERDAY MORNING. REMAINED BY PT. SIDE TODAY. SHE DID TAKE HER MEDICATIONS WITHOUT PROBLEMS NOTED.
--- NOTE | 2020-06-17 17:13 | NUR ---
PATIENT HAD AN EPISODE OF AGITATION AND CONFUSION THIS AM. HER BED ALARM WAS SOUNDING, AND NM ENTERED ROOM TO FIND HER WALKING RAPIDLY AROUNT THE FOOT OF HER BED TOWARD THE DOOR. NM HELD OUT ARMS TO HELP PT, AND PT BEGAN PUSHING NM, SAYING, "I HAVE TO GO FIND MY RIGHT NOW! SOMETHING IS WRONG! I DON'T KNWO WHERE I AM OR WHO I AM!" NM CALMED PT AND ASSISTED HER TO CALL HER , WHO SPOKE TO HER ON THE PHONE, AND RN ADMINISTERED MEDICATION FOR AGITATION. PT CALMED, AND CAME TO VISIT SOON VISITING HOURS STARTED. PT AND PARTICIPATED IN A TELE-MED PHONE VISIT WITH PT'S PSYCHOLOGIST JOSE RODRIGUEZ. NM RECV'D VM LATER IN THE AFTERNOON FROM JOSE RODRIGUEZ STATING THAT THE PATIENT "WAS NOT HERSELF" DURING THE PHONE VISIT, AND SEEMED FEARFUL. DR. RODRIGUEZ STATED THAT SHE SUSPECTS UNIPOLAR VS. BIPOLAR DEPRESSION CONSIDERING PT'S REPORT OF HAVING PROBLEMS SLEEPING FOR A FEW DAYS, OR PT MAY HAVE HOSPITAL PSYCHOSIS. DR. RODRIGUEZ RECOMMENDED A PSYCHIATRY CONSULT BE DONE WITH DR. CHOWDHURY. SHE PROVIDED HER PHONE # [phone], AND INVITED US TO CALL HER IF NEEDING ADDITIONAL INFO/ASSIST. SHE WILL HAVE AN APPOINTMENT ON 06/22 AT 1PM VIA PHONE AGAIN, LONG WE CAN ARRANGE IT INTO HER THERAPY SCHEDULE. tHIS WAS PLACED ON THE THERAPY SCHEDULE BOARD AND RELAYED TO THE RN. .
[2020-06-17 20:00] VITALS: BP 134/60
--- NOTE | 2020-06-18 04:06 | NUR ---
assumed care at approx 1900 evening 06/17. pt awake, alert and oriented, c/o feeling somewhat anxious and worried. pt given xanax as ordered and pt denied further complaints. pt wore cpap and appears to be sleeping soundly. pt up to bathroom with walker tolerating well. bed alarm on and call light in reach. will continue to monitor.
[2020-06-18 07:30] VITALS: BP 138/75
--- NOTE | 2020-06-18 10:30 | NUR ---
ASSUMED CARE AT 0700. PT WAS UP SEVERAL TIMES CALLING HER LAST NIGHT AND EARLY THIS MORNING. SHE IS ANXIOUS AND UNCOMFORTABLE WITH THE NEW PLACE. XANAX GIVEN EARLIER TODAY. PT IS CALMER UPON ASSESSMENT AND WAS ON THE PHONE WITH HER SPOUSE. DENIES ANY PAIN. PT ASSURED ABOUT HER WILL BE ABLE TO COME DURING VISITING HOURS. PARTICIPATED WITH THERAPY. ATE HER BREAKFAST FAIRLY WELL. TOLERATED HER MEDS WITH WATER. DIURESED ADEQUATELY. PT IS ON HER RECLINER, RESTING. CALL LIGHT WITHIN REACH. CHAIR ALARM ON.
[2020-06-18 19:35] VITALS: BP 130/71
--- NOTE | 2020-06-19 03:36 | NUR ---
assumed care approx 1900 evening 06/18. with pt at change of shift. pt up to bathroom to void before bedtime. pt complaint of feeling uneasy and anxious after left. pt given xanax as ordered. pt wore cpap from 2200 until approx 0230. pt then woke up confused and wanting to leave. pt reminded that she is in hospital and to try and sleep. pt stated she could not sleep and wanted to talk to on phone. pt is now on phone with and also went to bathroom to void with 1 assist. bed alarm on and call light in reach. will continue to monitor.
[2020-06-19 08:00] VITALS: BP 149/85
--- NOTE | 2020-06-19 15:00 | NUR ---
ASSUMED CARE AT 0700. SLEPT OFF AND ON. SHE WAS ANXIOUS AND UNABLE TO SLEEP AND WAS ON THE PHONE WITH HER SPOUSE SEVERAL TIMES LAST NIGHT. PT IS RECEPTIVE TO TRIAL MELATONIN AND HAS USED IN THE PAST AND DOES NOT THINK IT HELPS. SHE WAS GIVEN XANAX AT BEDTIME WHICH SEEMS TO HELP FOR A SHORT WHILE. DR GUTIÉRREZ INFORMED. APPETITE GOOD. DIURESING WELL. HAD NO BM TODAY. PT REQUESTED TO WALK IN THE UNIT. PT ASSISTED FROM ROOM TO EXIT DOOR AND BACK. SHE IS COOPERATIVE AND CALM WITH NO SIGN OF ANXIETY. CONT TO MONITOR
[2020-06-19 19:24] VITALS: BP 133/73
--- NOTE | 2020-06-19 23:12 | NUR ---
PATIENT SAT UP IN CHAIR WATCHING TV THIS EVENING. HER LEFT AROUND 1930 TO GO HOME. PATIENT REFUSED HER ALPRAZOLAM AT 2030 AND APPEARED CALM AND SHE WAS COOPERATIVE. PATIENT BECAME MORE ANXIOUS NIGHT WENT ON. SHE CALLED HER TO TELL HIM SHE COULDN'T FIND HER CALL LIGHT. IT WAS BESIDE HER IN THE CHAIR. FREQUENT CHECKS ARE BEING DONE ON THE PATIENT FOR SAFETY AND STATUS OF PATIENT. XANAX GIVEN PO AT 2156 AND PATIENT ASSISTED TO THE BATHROOM TO VOID AND THEN TO BED. BED RAILS UP ON BED. ASSISTED PATIENT WITH CPAP HEAD GEAR AND GETTING IT ON. PATIENT SLEEPING AT THIS TIME. PATIENT DENIES PAIN. SHE IS PLEASANT AND COOPERATIVE. CONTINUING TO MONITOR.
--- NOTE | 2020-06-20 02:08 | NUR ---
PATIENT AWOKE AT 0015 AND WAS CONFUSED. SHE SAID SHE WANTED HER DAD. SHE HAD JUST SEEN HIM AND KNOWS HE'S HERE. TRIED TO CALM PATIENT AND REORIENT HER. SHE BEGAN HYPERVENTILATING AND SAYING SHE COULDN'T SEE SHE HAD HER EYES CLOSED. PATIENT TO DISTRAUGHT TO USE THE BATHROOM. SHE STARTED PUSHING THE NURSE'S AWAY. SHE WAS DEMANDING TO SEE "HER DAD". I BELIEVE THIS IS HER SWAPNA. PATIENT SPOKE TO ON PHONE AT THIS TIME TO SEE IF SHE WOULD CALM DOWN BUT SHE ESCALATED. ACCOUNTS CLERK CAME TO HELP ANOTHER RN WITH PATIENT HOSPITALIST WAS CALLED. ORDER FOR HALDOL 5MG PO GIVEN AND PATIENT REFUSED MULTIPLE TIMES. CALLED HOSPITALIST, JOSLYN GONZALES BACK AND ORDER GIVEN TO CHANGE HALDOL ROUTE TO IM. HALDOL 5MG IM GIVEN AT 0025. PATIENT CONTINUED WITH PARANOIA AND THINKING THAT SHE WAS GOING TO BE KILLED. REASSURED PATIENT THAT SHE IS SAFE AND NO SUCH THING WILL HAPPEN. PATIENT REFUSED TO PUT CPAP ON. TOOK PATIENT TO BATHROOM AND BACK TO BED.PATIENT BEGAN CALMING BUT INSISTED ON TALKING TO HER DAD. SWAPNA WAS CALLED AND PATIENT REMAINED CALM SHE SPOKE WITH HIM. LET HIM KNOW THAT WE WILL CALL HIM IF SHE DOES NOT CALM DOWN. PATIENT RELAXED AND CPAP PLACED ON PATIENT. PT RESTING WITH EYES CLOSED AT THIS TIME. SHE AWOKE AT 0215 AND NEEDED TO USE THE BATHROOM. SHE WAS MORE CLEAR HEADED AND LUCID AT THIS TIME. PATIENT WENT BACK TO BED WITH CPAP ON WITHOUT ISSUE. EARLIER WHEN PT WAS COMBATIVE. SHE C/O DISCOMFORT IN RIGHT CALF AND LEFT SHOULDER. SHE REFUSED ANYTHING BY MOUTH AND WOULD NOT TAKE TYLENOL. DICLOFENAC CREAM APPLIED TO THESE AREAS WITH RELIEF. PATIENT WAS AT 5/10 AND NOW 0/10. BED IN LOW POSITION AND BED ALARM IS ON. CONTINUING TO MONITOR.
[2020-06-20 07:20] VITALS: BP 169/76
--- NOTE | 2020-06-20 15:48 | NUR ---
LATE ENTRY NOTE 06/17/20 INDEPENDENT FOR SELF CARE COGNITION: NEEDS SOME HELP ADMISSION: EATING: SET UP A ORAL CARE: CGA TOILETING: SBA SHOWER/BATHE: CGA UBD: SET-UP A LBD: CGA FOOTWEAR: SET-UP A TOILET TRANSFER: CGA DISCHARGE GOALS: EATING: SUP A ORAL CARE: SUP A TOILETING: SUP A SHOWER/BATHE: SUP A UPPER BODY DRESSING: SUP A LOWER BODY DRESSING: SUP A FOOTWEAR: SUP A TOILET TRANSFER: SUP A
--- NOTE | 2020-06-20 16:00 | NUR ---
PT'S HAS REMAINED AT HER BEDSIDE ALL DAY. HE NOTED THAT HE WOULD LIKE TO STAY ALL NIGHT IF POSSIBLE, OR HAVE A CAREGIVER COME TO SIT WITH HER ALL NIGHT TO KEEP HER SAFE AND HELP REDUCE AGITATION. NM TO COMMUNICATE WITH THE TREATMENT TEAM TOMORROW REGARDING READINESS FOR DC VS ONGOING TX IN THE HOSPITAL AND NEED FOR FAMILY SITTERS AT NIGHT. PT WAS VERY CALM THROUGHOUT THE DAY WITH NEARBY, BUT BEGAN SEEING "CHILDREN ON THE FLOOR" IN HER ROOM IN THE EVENING. SHE REMAINED RE-DIRECTABLE THROUGHT THE DAY. HOSPITALIST WILL FOLLOW FOR PSYCHE NEEDS PER DR. CHOWDHURY'S REQUEST, AND ORDERS RECEIVED FOR MEDICATION CHANGES TODAY.
[2020-06-20 19:41] VITALS: BP 118/51
--- NOTE | 2020-06-20 23:49 | NUR ---
PATIENT HAS BEEN CALM AND COOPERATIVE TONIGHT. SHE SAT UP IN RECLINER CHAIR WITH CHAIR ALARM IN PLACE, SLEEPING OFF AND ON UNTIL SHE WAS READY TO GO TO BED. SHE DENIED PAIN AND ANXIETY UP TO THIS POINT. PATIENT WAS UP TO THE BATHROOM TO VOID BEFORE BED. SHE IS A/0X1. PATIENT SLEPT IN BED AND AWAKENED AT 2330 CONFUSED AND ANXIOUS. SHE ALSO WITH C/O OF SLIGHT HEADACHE. TYLENOL 650MG PO AND HYDROXIZINE 10MG PO GIVEN FOR SLIGHT AGITATION/ANXIETY. PATIENT WAS HUNGRY AND ATE VANILLA PUDDING AT THIS TIME. CPAP PLACED BACK ON PATIENT AND PATIENT MADE COMFORTABLE IN BED. PATIENT TRANSFERS WITH GAIT BELT AND WALKER. SHE IS ASSIST X 1. WHEN SHE AWOKE CONFUSED SHE HAS BEEN ASKING WHERE HER PARENTS ARE. REASSURED PATIENT THAT SWAPNA (SPOUSE) WOULD BE HERE IN THE MORNING. PATIENT RESTING IN BED QUIETLY WITH EYES SHUT. BED IN LOW POSITION AND BED ALARM IS ON. FREQUENT ROUNDING TO EVALUATE STATUS AND SAFETY OF PATIENT AND TO REASSURE. CALL LIGHT IN PLACE BY PATIENT.
--- NOTE | 2020-06-21 02:23 | NUR ---
PATIENT CALLED OUT FOR "SHAY". THIS NURSE WENT TO CHECK ON HER. SHE STATES SHE NEEDS TO USE THE BATHROOM. PATIENT ASSISTED TO BATHROOM AND BACK TO BED. WARM BLANKET PLACED ON PATIENT D/T FEELING COLD. CPAP PLACED BACK ON. PATIENT ASKED FOR SHAY AND HER PARENTS. EXPLAINED THAT THEY WERE NOT HERE AND VISITING HOURS START AT 0900 AND CAN SEE THEM THEN. PATIENT GOT IRRITATED AND STATES, "I CAN'T BELIEVE YOU ARE LIKE THIS. I CAN'T BELIEVE YOU ARE DOING THIS TO ME." I ASKED WHAT i WAS DOING TO HER. SHE RESPONDED, "YOU USED TO BE NICE TO ME." SHE COULDN'T VOICE WHAT WAS WRONG. APPLIED DICLOFENAC CREAM TO LEFT LOWER LEG D/T CRAMPING WITH RELIEF. CPAP PLACED BACK ON PATIENT. PT WANTS TV LEFT ON. PT RESTING QUIETLY IN BED AT THIS TIME. FREQUENT MONITORING. BED IN LOW POSITION AND BED ALARM IS ON. CONTINUING TO MONITOR.
--- NOTE | 2020-06-21 03:10 | NUR ---
PATIENT ASKED TO CALL AND SPEAK TO HER , SWAPNA. SHE WAS SLIGHTLY ANXIOUS AND NEEDED TO HEAR HIS VOICE TO FEEL SAFE. PATIENT SPOKE TO AND THEN WAS ASSISTED TO THE BATHROOM TO VOID PER REQUEST. PATIENT MORE RELAXED AND LESS CONFUSED AT THIS POINT. CPAP PLACED BACK ON PT. BED IN LOW POSITION AND BED ALARM ON. PATIENT RESTING WITH TV ON AND NO SOUND ON PER PT PREFERENCE. CONTINUING TO MONITOR.
[2020-06-21 07:15] VITALS: BP 151/80
[2020-06-21 13:21] LABS: URINE BILIRUBIN NEGATIVE (Negative); URINE BLOOD NEGATIVE (Negative); URINE CLARITY CLEAR; URINE COLOR YELLOW; URINE GLUCOSE-RANDOM* NEGATIVE (Negative); URINE KETONES TRACE (Negative); URINE LEUKOCYTES-REFLEX NEGATIVE (Negative); URINE NITRITE-REFLEX NEGATIVE (Negative); URINE PROTEIN (DIPSTICK) NEGATIVE (Negative); URINE UROBILINOGEN 0.2 E.U./dl (0.2-1.0)
--- NOTE | 2020-06-21 15:20 | H ---
[facility] [place] [address] HISTORY AND PHYSICAL Name: EDD HUNTER Room #: 513-P ADM IN M.R.#: [id number] Admission: 06/16/20 Attend Phys: Praveen Carvajal MD Discharge: Date of : 41 Report #: [id number] THIS REPORT FOR: cc: Dc Renner MD, Mark A. MD Smithson, David G. MD ~ DATE OF SERVICE: 06/16/2020 HISTORY AND PHYSICAL ADDENDUM/OVERALL PLAN OF CARE HISTORY OF PRESENT ILLNESS: The patient was admitted for acute in-hospital inpatient rehabilitation on 06/16/2020. Please see the history and physical documentation from earlier today. The patient had been admitted for symptoms of right-sided weakness and stroke-like symptoms of vertigo. MRI showed no acute process of the head. Neurology was involved. She did have right lower extremity weakness and back pain. MRI of the thoracic and lumbar spine was obtained. She does have severe neural foraminal stenosis, T11 acute on chronic compression fracture. She had some hypotension that has resolved and her vertigo has improved. She is still weak with balance deficits and has been admitted for acute in-hospital inpatient rehabilitation. As far as prior medical history, allergies, social history and habits, please see the documentation of the history and physical. MEDICATIONS: Please see the full medication listing. REVIEW OF SYSTEMS: See the full 14-point system as noted. PHYSICAL EXAMINATION: GENERAL: The patient is a pleasant 74-year-old white female in no obvious distress. VITAL SIGNS: Vitals are as documented. Temperature 98.1, pulse 94, respirations 18, blood pressure 142/82. She is on room air. HEENT: Facies are symmetric. CHEST: Sounded clear to auscultation. CARDIOVASCULAR: Regular rate and rhythm. ABDOMEN: Bowel sounds positive, nontender. GENITOURINARY AND RECTAL: Deferred. No calf swelling. EXTREMITIES: Functional range of motion of both upper and lower extremities. Strength of the upper body is probably a grade 4-/5. Lower extremities, right lower extremity appears to be somewhat weaker than left lower extremity, probably a grade 3+ to 4-/5 compared to the left lower extremity 4-/5. Functionally, she has been min assist to standby to sit to stand and min assist ambulated short distance. She has moderate [place] [address] HISTORY AND PHYSICAL Name: EDD HUNTER Nathan Room #: 513-P [facility] IN [facility]#: [id number] Admission: 06/16/20 Attend Phys: Praveen Carvajal MD Discharge: Date of : 43 Report #: [id number] ASSESSMENT: A 74-year-old white female with the following problems: 1. Lumbar radiculopathy with right lower extremity weakness and falls. 2. Vertigo. 3. Acute on chronic T11 compression fracture. 4. Degenerative arthritis. 5. Depression with anxiety. 6. Hypothyroidism. 7. Question of early dementia. 8. Hyperlipidemia. PLAN: The patient has been admitted for acute in-hospital inpatient rehabilitation. Please see the patient's previous and current functional status. As far as risk of complication, she has multiple medical comorbidities as noted above. Initial plan of care involves the interdisciplinary acute inpatient rehabilitation program. Prognosis is reasonably good with estimated length of stay probably at least 7-10 days pending barriers. Potential barriers would include her multiple medical comorbidities and decreased functional status. The overall plan of care is based on the preadmission screen and information garnered from therapy assessments. 1. Estimated length of stay is as noted above. 2. Medical prognosis is reasonably good. 3. Anticipated interventions includes the interdisciplinary acute inpatient rehabilitation program. 4. Anticipated functional outcomes would be for the patient to become modified independent with transfers, mobility and ADLs, so she can return back to the home setting as well as to improve as far as cognitive issues and memory. She does have moderate cognitive deficits with severe memory deficits. 5. Discharge destination would be back home with . I did discuss with him, their home setting. He notes that they are both retired. He uses a cane himself. Easiest way into the house is through the garage. 6. Expected therapy by discipline includes PT, OT and speech 1 hour per day each five days a week throughout the duration of the acute inpatient rehabilitation stay. The patient's prognosis for significant practical improvement within a reasonable period of time appears good. Given the patient's complex medical condition and risk of further medical complication, rehabilitation services [address] [address] HISTORY AND PHYSICAL Name: EDD HUNTER Room #: 513-P [facility] IN ..#: [id number] Admission: 06/16/20 Attend Phys: Praveen Carvajal MD Discharge: Date of : 41 Report #: [id number] could not be safely provided at a lower level of care such as a halfway facility. <ELECTRONICALLY SIGNED> By: Praveen Carvajal MD 06/21/20 1520 [id number] Praveen Carvajal MD /
--- NOTE | 2020-06-21 16:25 | NUR ---
FAXED REFERRAL TO [facility] SPOKE WITH LILIYA IN INTAKE THEY RECEIVED REFERRAL AND WILL REVIEW. WILL F/U WITH THEM IN THE MORNING.
[2020-06-21 16:32] VITALS: BP 151/80
--- NOTE | 2020-06-21 17:02 | NUR ---
Team conference mtg today. Followup dc planning visit with the pt and spouse at bedside. DC plan is for 06/23/20 with HH. They would like to use [facility] again. Dc tool and production planner fax them a referral to confirm they can accept her on service again. Pt has needed dme in place at home. Spouse provided [employer] resource for private duty as he is considering hiring some additional help at home. The pt has been noted to be less alert and more confused x 2 days but had rough nights with confusion and aggitation. The pt's spouse has been able to help calm her over the phone. CT neg. UA neg. Psych consult pending. The pt has been doing well with therapy prior to the past two nights events. Care team and spouse feel a familiar home enviornment may help with this. Pt's spouse will be here mid morning on to take her home unless there are any additional changes in her condition. [facility] SNF discussed per spouse suggestion should she get home and not do well. They are from [place] and [facility].
--- NOTE | 2020-06-21 19:28 | NUR ---
Alert and orientated X3 this AM. Quiet, calm and compliant. Forgetful at times. at side most of day, participating in cares. Slightly irregular gait with walker and X1 assist. Breath sounds clear. Regular HR auscultated. Color pink with brisk capillary refill and palpable peripheral pulses. +1 edema to lower extremities. Yellow urine per toilet, UA sent per order. Last reported BM was 06/16 or 06/17. ARTIST AGENT notified, Mag Citrate given with small, formed brown results. Active bowel sounds over soft, rounded abdomen. CT done per order. Currently sitting in chair without s/o distress. concerned r/t confusion, forgetfullness.
[2020-06-21 19:51] VITALS: BP 155/91
--- NOTE | 2020-06-22 03:56 | NUR ---
ASSESSED AT START OF SHIFT. PT SITTING IN CHAIR UP WITH ASSISTX1 TO THE BATHROOM. EVENING MEDS GIVEN ONE AT A TIME AND PT MADHAV IT WELL. FALL PREC IN PLACE. PT WEARS CPAP AT NIGHT. LIDOCAINE PATCH REMOVED FROM BACK. CALL LIGHT AT REACH. WILL CONT TO MONITOR.
[2020-06-22 07:02] LABS: ABSOLUTE NEUTROPHILS 4.8 thou/uL (1.4-8.2); BASOPHILS 0.4 % (0.0-2.0); HEMATOCRIT 44.2 % (37.0-47.0); HEMOGLOBIN 14.3 gm/dL (12.0-15.0); LYMPHOCYTES 28.1 % (24.0-44.0); MCHC 32.3 g/dL (28.0-37.0); MCV 92.7 fL (80.0-100.0); MONOCYTES 13.4 % (1.0-8.0); PLATELET COUNT 235 thou/uL (150-400); POLYS 58.1 % (36.0-66.0); RBC 4.77 mil/uL (4.20-5.00); RDW 14.1 % (10.5-14.5); WBC 8.3 thou/uL (4.0-11.0)
[2020-06-22 07:09] LABS: CALCIUM 9.2 mg/dL (8.5-10.1); CREATININE 0.7 mg/dL (0.6-1.0); MAGNESIUM 3.1 mg/dL (1.8-2.4)
[2020-06-22 07:20] VITALS: BP 135/78
--- NOTE | 2020-06-22 16:27 | NUR ---
RN ASSUMED PT'S CARE AT 0700AM, PT IS A&OX2 ( PERSON AND PLACE), PT CAN FOLLOW COMMANDS, PT 'S VS ARE STABLE, PT GETS UP TO BATH ROOM WITH ASSIST, PT DENIES PAIN AND SOB BY THIS TIME, PT GETS TO CHAIR NOW.PT'S STAYS WITH HER AT MOST OD DAY.
[2020-06-22 20:45] VITALS: BP 146/52
--- NOTE | 2020-06-23 01:17 | NUR ---
06-22-14 CARE TRANSFERRED 1914. PT AAOX3, VSS, RR EVEN AND NONLAOBREDON RA, PT DENIES PAIN. PT PLEASANT CALM AND COOPERATIVE. DURING MEDICATION ADMIN PT REPORTED SHE WAS FEELING A LITTLE ANXIOUS, BUT DENIED NEEDING A PRN AT THIS TIME. ZERO S/S OF ACUTE DISTRESS NOTED, PT WILL CONTINUE TO BE MONITOR.
[2020-06-23 10:20] VITALS: BP 151/80
[2020-06-23] MEDS ORDERED: MIRALAX17 GM PO (10:47)
[2020-06-23] MEDS ORDERED: LEXAPRO20 MG PO (10:47)
[2020-06-23] MEDS ORDERED: TRAZODONE HCL100 MG PO (10:47)
[2020-06-23] MEDS ORDERED: FOLIC ACID1 MG PO (10:47)
[2020-06-23] MEDS ORDERED: COLACE100 MG PO (10:47)
[2020-06-23 11:50] VITALS: BP 151/80
--- NOTE | 2020-06-23 13:58 | NUR ---
DISCHARGE NOTE: SW reviewed chart. Pt medically stable for discharge home today with [facility]. train planner faxed finalized discharge orders/summary to HH. Contact info for HH placed in pt's discharge summary. Pt's family provided transportation home. No additional SW needs identified at this time, but is available to assist should needs arise.
--- NOTE | 2020-06-23 14:01 | NUR ---
FAXED DC ORDERS/SUMMARY [facility] RECEIVED CONFIRMATION AND SPOKE WITH OUMOU IN INTAKE SHE WILL ARRANGE VISITS WITH PT..
--- NOTE | 2020-06-23 15:11 | NUR ---
DISCHARGE INSTRUCTIONS REVIEWED WITH PATIENT AND INCLUDING HOME HEALTH ORDERS,MEDICATIONS DOSING AND TIMES AND FOLLOW UP APPOINTMENTS. PT DOES REPORT SOME ANXIETY SYMPTOMS REGARDING DC AND ABILITY TO MANAGE AT HOME-XANAX 0.5MG PO PRN AT APPROX 1200 WITH LUNCH-PT REPORTS FEELING CALMER AT APPROX 1300-PT DC'D VIA WC-ACCOMPNIED BY NURSING STAFF TO [place] VIA PRIVATE VEHICLE. DENIES COMPLAINTS AT TIME OF DC.
--- NOTE | 2020-06-26 17:28 | HC ---
[facility] [place] [address] CONSULTATION Name: EDD HUNTER Room #: 513-P [facility] IN M.R.#: [id number] Admission: 06/16/20 Attend Phys: Praveen Carvajal MD Discharge: 06/23/20 Date of : 41 Report #: [id number] THIS REPORT FOR: cc: Dc Renner MD, Mark A. MD Deutch,Nabeel Cortez. PhD ~ DATE OF SERVICE: 06/18/2020 NEUROBEHAVIORAL STATUS EXAM AGE: 74 ATTENDING PHYSICIAN: Praveen Carvajal MD WIRE SAW OPERATOR: Nabeel Gillespie, PhD CLINICAL PRESENTATION: The patient is a 74-year-old female admitted to [facility] Unit for a comprehensive inpatient rehabilitation program to improve functional mobility, activities of daily living and self-care and mental status secondary to deficits from lumbar radiculopathy with right lower extremity weakness and falls. The patient was admitted initially to the hospital with right-sided weakness and stroke-like symptoms. However, an MRI did not show an acute process. Severe foraminal stenosis was diagnosed in an MRI of the thoracic and lumbar spine. The patient also has hypotension. She had balance deficits and was too weak to return home. Her assessment on admission to the rehab unit is lumbar radiculopathy with right lower extremity weakness and falls, vertigo, acute on chronic T11 compression fracture, degenerative arthritis, depressive disorder with anxiety, hypothyroidism, question of early dementia and hyperlipidemia. Prior to this most recent admission, the patient was living at home with her . 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 She has 2 stepchildren. She is described by her as having been quite depressed with minimal activity and very sedentary in the home. She did have a brief psychiatric hospitalization on the Behavioral Unit here at [facility]. Difficulty with memory and periods of disorientation along with agitation when left alone. Short-term memory issues were also reported. The patient has had a severe depressive reaction for the last several years. TECHNIQUES UTILIZED: Clinical interview, review of medical records, staff consultation and behavioral observation, mini mental status exam 2 standard version, clock drawing, verbal fluency assessment, family interview -- . [facility] [address] [place] [address] CONSULTATION Name: EDD HUNTER Nathan Room #: 513-P [facility] IN .R.#: [id number] Admission: 06/16/20 Attend Phys: Praveen Carvajal MD Discharge: 06/23/20 Date of : 41 Report #: [id number] EXAMINATION FINDINGS: The patient was alert and cooperative with the assessment. She accurately described the reason for her hospitalization as difficulty with balance and falling. She reports problems with memory and disorientation. Her performance on the MMSE 2 brief version was extremely low with a raw score of 12 and 16, T score of 29 and percentile rank at 2. She was 3/3 for initial registration, 4/5 for orientation to time, 5/[address] and 0/3 for immediate recall of 3 items after a brief time delay and distraction. Performance on the MMSE 2 standard version was 21 of 30, which is a T score of 27 and percentile rank of 1. She was 1/5 for serial sevens, 2/2 for naming, 1/1 for repetition, 3/3 for auditory comprehension. She could read and follow single command and write a sentence. The patient was unable to accurately copy a simple geometric design. The patient also was unable to accurately set the hands of a clock at a designated time. Performance in letter fluency was in the borderline range with a T score of 35 and percentile rank of 7. Category fluency was a T score of 39 and percentile rank of 14. Overall, total verbal fluency was a T score of 35, percentile rank of 7. The patient is presenting with deficits in multiple neurocognitive modalities. A previous neuropsychological assessment was given. This type of presentation is often seen in major neurocognitive disorders (dementia). DIAGNOSTIC IMPRESSION: Major neurocognitive disorder (dementia), without behavior disorder -- extent to be determined, likely in the mild to moderate range. Major depressive disorder with anxiety. RECOMMENDATIONS: The patient will likely require increasing supervision and structure when she returns home in order to maintain safety. Assistance in the management of medication, finances and nutrition as indicated. Her is reported to have been managing bills and medication prior to this recent hospitalization. Continue treatment for depression and neurocognitive deficits are also recommended. Verbal priaise and complements during participation in therapies. Follow up psychiatric managment of medication and psychotherapy including her to assist in environmental modications to improve activity following discharge. A consistent and structured routine with encouragment to engage in [address] [address] CONSULTATION Name: LEDYFOUZIAEDD Nathan Room #: 513-P [facility] IN .R.#: [id number] Admission: 06/16/20 Attend Phys: Praveen Carvajal MD Discharge: 06/23/20 Date of : 41 Report #: [id number] activities of former interest will help diminish depressive symptoms following discharge. Thank you very much for allowing me to provide the consultation on this patient. <ELECTRONICALLY SIGNED> By: Nabeel Gillespie, PhD 06/26/20 1728 22 51 Nabeel Gillespie, PhD /nt
== END 2020-06-23 13:00 | disposition home health service (06) | DRG 552 ==
PROVIDERS: Nurse Practitioner; Nurse Practitioner Family; ADMIT Physical Medicine & Rehabilitation; ATTEND Physical Medicine & Rehabilitation
DX: M54.16 Radiculopathy, lumbar region (principal); M84.48XA Pathological fracture, other site, initial encounter for fracture; R53.81 Other malaise; M19.90 Unspecified osteoarthritis, unspecified site; E03.9 Hypothyroidism, unspecified; E78.5 Hyperlipidemia, unspecified; F01.50 Vascular dementia, unspecified severity, without behavioral disturbance, psychotic disturbance, mood disturbance, and anxiety; R29.6 Repeated falls; R42 Dizziness and giddiness; F32.9 Major depressive disorder, single episode, unspecified; F41.9 Anxiety disorder, unspecified; I10 Essential (primary) hypertension; R41.0 Disorientation, unspecified; I95.1 Orthostatic hypotension; Z79.82 Long term (current) use of aspirin; Z79.899 Other long term (current) drug therapy; Z90.710 Acquired absence of both cervix and uterus
CPT/HCPCS: 10112

== ENCOUNTER 2020-08-22 11:37 | Emergency (ER) | payer OTHER, MEDICARE ==
[~2020-08-22] VITALS: Ht 152.4 cm; Wt 68.0 kg
[~2020-08-22 11:37] MED LIST changes: +ASPIR 8181 MG PO; +COLACE100 MG PO; +FOLIC ACID1 MG PO; +LEXAPRO20 MG PO; +LIPITOR40 MG PO; +TRAZODONE HCL100 MG PO
[2020-08-22 12:22] LABS: ABSOLUTE NEUTROPHILS 3.9 thou/uL (1.4-8.2); BASOPHILS 0.6 % (0.0-2.0); EOSINOPHILS 0.1 % (0.0-3.0); HEMATOCRIT 39.1 % (37.0-47.0); HEMOGLOBIN 13.1 gm/dL (12.0-15.0); LYMPHOCYTES 19.3 % (24.0-44.0); MCH 30.5 pg (26.0-34.0); MCHC 33.5 g/dL (28.0-37.0); MCV 90.9 fL (80.0-100.0); MONOCYTES 14.7 % (1.0-8.0); PLATELET COUNT 248 thou/uL (150-400); POLYS 65.3 % (36.0-66.0); RDW 16.3 % (10.5-14.5)
[2020-08-22 12:32] LABS: CALCIUM 8.9 mg/dL (8.5-10.1); CREATININE 0.8 mg/dL (0.6-1.0); POTASSIUM 3.9 mmol/L (3.5-5.1)
[2020-08-22 12:38] LABS: TOTAL BILIRUBIN 0.7 mg/dL (0.2-1.0); TOTAL PROTEIN 6.1 g/dL (6.4-8.2)
[2020-08-22 13:32] LABS: URINE BILIRUBIN NEGATIVE (Negative); URINE BLOOD NEGATIVE (Negative); URINE CLARITY CLEAR; URINE COLOR YELLOW; URINE GLUCOSE-RANDOM* NEGATIVE (Negative); URINE KETONES NEGATIVE (Negative); URINE LEUKOCYTES-REFLEX NEGATIVE (Negative); URINE NITRITE-REFLEX NEGATIVE (Negative); URINE PROTEIN (DIPSTICK) NEGATIVE (Negative); URINE SPECIFIC GRAVITY 1.015 (1.005-1.035); URINE UROBILINOGEN 0.2 E.U./dl (0.2-1.0)
--- NOTE | 2020-08-22 15:27 | EKG ---
[place] [address] [facility] [place] [address] ELECTROCARDIOGRAM REPORT Name: EDD HUNTER Room #: [facility]#: [id number] Admission: 08/22/20 Attend Phys: Discharge: Date of : 41 Report #: [id number] [facility] ED Test Date: 2020-08-22 Test Time: 13:01:59 Pat Name: EDD HUNTER Department: Room: Gender: F Client Development Manager: : 1945 Requested By: Chuck Apple Order Number: [id number] MD: Tamir Rivera Measurements Intervals [place] Rate: 72 P: 25 [place]: 209 QRS: -44 QRSD: 114 T: 36 QT: 401 QTc: 439 Interpretive Statements Sinus rhythm Left bundle branch block Left ventricular hypertrophy Compared to ECG 06/14/2020 13:41:11 Left ventricular hypertrophy now present Q waves now present First degree AV block no longer present Electronically Signed On 08-22-2020 15:27:22 CDT by Tamir Rivera [email or web address] <ELECTRONICALLY SIGNED> By: Tamir Rivera MD 08/22/20 1527 1301 1301 Tamir Rivera MD /NASIR
[2020-08-22 19:32] VITALS: BP 137/70
== END 2020-08-22 19:34 ==
LOC: ER 11:37
PROVIDERS: Emergency Medicine
DX: F32.9 Major depressive disorder, single episode, unspecified (principal); E03.9 Hypothyroidism, unspecified; I10 Essential (primary) hypertension; Z90.710 Acquired absence of both cervix and uterus; Z79.899 Other long term (current) drug therapy; Z79.82 Long term (current) use of aspirin; Z20.822 Contact with and (suspected) exposure to COVID-19

== ENCOUNTER 2020-08-22 14:53 | Inpatient (IN) | payer OTHER, MEDICARE ==
[~2020-08-22] VITALS: Ht 157.5 cm; Wt 75.0 kg
[2020-08-22 19:30] VITALS: BP 159/82
--- NOTE | 2020-08-23 04:12 | NUR ---
08-22-201919 RECEIVED REPORT FROM ERIK IN ED. 1929 PT ARRIVED ON UNIT, PT AAOX4, VS B/P159/82, P 73, R 18, T 97.7, 02 SAT 98% RA RR EVEN AND NONLABORED ON RA. PT DENIES SI/HI AND PAIN. PT REPORTS BEING DEPRESSED FOR SEVERAL YEARS, BUT THE DEPRESSION HAD INCREASED FOLLOWING THE OF HER IN JUN. PT REPORTS THAT THIS UNIT IS NOT A GOOD FIT AND REPORTED BEING HERE WHEN UNIT FIRST OPENED. PT SIGNED CONSENT, BUT WAS RESISTANCE TO SIGNING ANYTHING ELSE. PT PRESENTS ANXIOUS OVER SITUATION AND LOST OF . HCP Julia TENA CONSULTED AND ORDERS RECEIVED. HCP JOSLYN KHALIL CONTACTED. CONTACTED PT DPOA SEBASTIEN HUNTER AND RECEIVED CONSENT TO TREAT AND DPOA WILL BE BRINGING IN PAPER WORK WITH ANOTHER EXTRA CHANGE OF CLOTHES TOMORROW. LATER PT REPORTED NOTE BEING ABLE TO SLEEP, Julia TENA DO CONSULTED AND ONE TIME ORDER RECEIVED. LATER NOTED PT RESTING WITH EYES CLOSED IN BED. ZERO S/S OF ACUTE DISTRESS NOTED, PT WILL CONTINUE TO BE MONITOR PER [facility] PROTOCOL. PT HX HLD, ORTHO HYPOTENSION, HYPOTHYROIDISM, DEPRESSION AND ANXIETY.
[2020-08-23 09:41] VITALS: BP 113/70
--- NOTE | 2020-08-23 11:22 | NUR ---
1100 RESUMMED CARE FROM OVERNIGHT THIS AM, PATIENT IN DAYROOM SITTIG QUIET. PATIENT ALERT AND ORIENTED TIMES 4, PATIENT DENIES SI/HI/AH/VH AT PRESENT. PATIENT DOES STATES SHE HAS DEPRESSION SHE SCORED IT AT A 9 DUE TO WHO IN JUNE. PATIENTS ABDOMEN SOFT BOWEL SOUNDS PRESENT PATIENTS LUNGS CLEAR. PATIENT PARTICIPATED IN GROUPS CALM QUIET I ASKED PATIENT IF SHE WANTED TO TALK WITH THE JOANNA. SHE STATED YES I PUT AN ORDER IN FOR PATIENT, I TOLD HER SHE CN ALSO TALK WITH STAFF. WILL CONTINUE TO MONITOR PATIENT SAFETY AND BEHAVIORS.
--- NOTE | 2020-08-23 14:20 | NUR ---
Nutrition: Pt admit with depression; her in June. Wt in 2019 was 147 lb, wt in May of this year was 173 lb, 10 lb loss. No H&P yet. Per ER note, family was concerned that pt was unable to care for self; pt reported that she could care for herself but didn't have the energy or was not interested. Intake 100% at breakfast and lunch today. Meds reviewed. 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
--- NOTE | 2020-08-23 15:01 | NUR ---
GIA was able to to speak to the Pt's Son/ DPOA, Issa Moore [phone]. Issa informed that they have a placement for the Pt at [facility] for assisted living. GIA did inform of the recommendation for [place] memory care. GIA provided education of assisted living. Issa had no other questions or concerns at this time. GIA did reach out to [facility] and spoke with Lawrence. Lawrence confirmed the family has placed a deposit and plan for Pt to d/c to them. Shyann provided GIA with fax number for clinical updates [phone]. GIA will continue to follow
[2020-08-23 19:23] VITALS: BP 120/60
--- NOTE | 2020-08-23 22:48 | NUR ---
Assumed care for pt at 1900. Pt in room at start of this shift, and has remained in her room throughout the evening prior to bed. Pt was calm, cooperative, and pleasant upon interactions with staff & nursing asssessment. Pt compliant with scheduled medication, and takes whole with water. Pt denied having any pain. Pt reports her appetite has been good and that the food is good here. Pt reports having a BM today. Pt is independent with ADLs/toileting. Pt reports her depression is better today and rates it a 7/10. Pt reports her depression and sadness is related to the recent of her of 40 years. Pt denies having any anxiety at this time. Pt reports she did not sleep well last night. Pt is A&O x 4. Pt is on Q-12 minute checks. Will continue to monitor for any changes in mood or behavior. Pt denies any SI/HI.
[2020-08-24 09:58] VITALS: BP 138/69
--- NOTE | 2020-08-24 13:12 | NUR ---
HAS BEEN VISIBLE IN DAYRROM AT MEALS AND FOR SCHEDULED GROUPS-SITS WITH PEERS AT TABLE FOR MEALS BUT LITTLE NOTED INTERACTION. SAD,FLAT EXPRESSION AND DELAYED VERBAL RESPONSES. DENIES SI/SH. DURING UNSTRUCTURED TIME DOES GO TO ROOM-FREQUENTLY REQUESTS PHONE TO CALL SON-NEEDED ASSIST IN DIALING AND STATES WASN'T ABLE TO REMEMBER HIS NUMBER. IS ORIENTED TO DATE/PLACE. RATES DEPRESSION A 8 ON 1-10 SCALE
[2020-08-24 18:55] VITALS: BP 133/83
[2020-08-24 20:30] VITALS: BP 133/83
--- NOTE | 2020-08-25 03:49 | NUR ---
Assumed pt care at 1900. A/OX4,VSS.Denies pain on assessment,c/o anxiety at the beginning of the shift medicated per EMAR with little effect. Agrees to feeling depressed at 7/10,sad with flat affect 1:1 conversation done with pt. Denies SI/HI.C/o insomnia after sometimes medicated with Trazadone and effective,pt been resting with eyes closed and no s/sx of distress noted. Pt's up ad constance,continent of B&B.Will continue to monitor pt.
[2020-08-25 07:30] VITALS: BP 168/96
[2020-08-25 08:30] VITALS: BP 168/96
--- NOTE | 2020-08-25 08:59 | NUR ---
PT TOOK MEDS WITHOUT ANY ISSUES THIS AM. PT SITTING IN DINING ROOM AND FINISHED BREAKFAST. PT DENIES ANY ISSUES AT THIS TIME.
--- NOTE | 2020-08-25 14:44 | NUR ---
GIA and Dr. Luis participated in a family meeting with the Pt, Issa, and Pt's cousin Ismael. An update was given on the Pt and overview of medications. Silvia had questions concerning medical marijuana and medications to address anxiety. Dr. Luis was able to answer questions concerning medications. Gia will continue to follow
[2020-08-25 20:14] VITALS: BP 142/82
--- NOTE | 2020-08-26 05:33 | NUR ---
Assumed care on 08/25/20 @ 1900, ambulating the mileu ad constance. Continent, A&Ox3-4, to person, place and president, not able to give date, but can relay her . Spoke to two family members on the phone, and compliant with medication administration, taking meds whole with water, one at a time. Slept7.8 hours overnight.
[2020-08-26 08:46] VITALS: BP 139/48
--- NOTE | 2020-08-26 12:00 | NUR ---
PT. PARTICIPATED ACTIVELY AND APPROPRIATELY IN MORNING RT GROUP. SHE SHARED SOME OF HER LIKES FOR LEISURE. WHAT SHE LIKES TO READ. LIVING IN THE [place] VS COUN[place]. LOCAL AND NATIONAL NEWS OF THE DAY and GOALS FOR THE DAY. she was quiet and listened talk.
--- NOTE | 2020-08-26 12:11 | H ---
[facility] [place] [address] HISTORY AND PHYSICAL Name: EDD HUNTER Room #: 526A-A ADM IN M.R.#: [id number] Admission: 08/22/20 Attend Phys: Phi Maya DO Discharge: Date of : 41 Report #: [id number] THIS REPORT FOR: cc: Dc Renner MD, Mark A. MD Kerstein,Phi Shah DO ~ DATE OF SERVICE: 08/23/2020 INPATIENT PSYCHIATRIC EVALUATION ATTENDING PSYCHIATRIST: Phi Maya DO HOSPITALIST: Silver Silva MD and his hospitalist service. SOURCES OF INFORMATION: Interview with the patient, discussion with her marina Parsons yesterday, chart review. Of note, the patient was hospitalized here on the [facility] in 05/2018, so just over 2 years ago. CHIEF COMPLAINT: Has an appointment with Dr. Maya. HISTORY OF PRESENT ILLNESS: This is a 74-year-old female, recently , retired. Her passed 07/10/2020. The patient has been living in her home, most recently with her marina. She was also earlier this month at a Rehabilitation Facility. She has had several hospitalizations recently including [facility]. She was hospitalized here at [facility] in May of this year due to a stroke concern and had a rehabilitation admission on . The patient is concerned about depression, also concerned about possibility of dementia. ____ she was not able to take care of herself at home. When I asked in the ER, she states it is not because she cannot, it is because she does not have the energy to and she really is not interested. She denies suicidal thoughts or plans, but admits that she has felt sometimes it would be better off that she ____. She reports being on several psychiatric medications prescribed by Dr. Timur Mendoza including escitalopram, Zoloft, trazodone, Xanax. REVIEW OF SYSTEMS: Denied recent fever, cough, shortness of breath, chest pain, headache, nausea, vomiting, diarrhea, constipation, urinary symptoms. MEDICAL HISTORY: Includes a hysterectomy in 1988 after miscarriage. She does not have any biological children, also reports several fractures, T11 vertebral fracture spring 2019, left ankle stress fracture fall 2019. Other medical problems include hypertension, hypothyroidism. PSYCHIATRIC HISTORY: Includes mild neurocognitive disorder, anxiety, depression. Tetanus shot was greater than 5 years ago. [facility] [address] [place] [address] HISTORY AND PHYSICAL Name: EDD HUNTER Room #: 526A-A ADM IN [facility].#: [id number] Admission: 08/22/20 Attend Phys: Phi Maya DO Discharge: Date of : 41 Report #: [id number] HOME MEDICATIONS: Noted to be meclizine 1 tab p.o. t.i.d., levothyroxine 50 mcg oral daily, cholecalciferol 5000 International Units daily, atorvastatin 40 mg daily, aspirin 81 mg p.o. daily, escitalopram 10 mg oral daily, trazodone 100 mg p.o. at bedtime, docusate 100 mg p.o. b.i.d., folic acid 1 mg oral daily, MiraLax 17 grams daily. She denies any medications or environmental allergies. SOCIAL HISTORY: Denies history of tobacco use, alcohol use or recreational drug use. Otherwise, 10-point review of systems is negative. Her weight is 68.04 kilos. Additional information from my history and physical psychiatric history. She was diagnosed with depression, refractory to outpatient treatment following poor hygiene. FAMILY HISTORY: Apparently, her father of Creutzfeldt-Julius disease. Mother had dementia. On questioning today, she reports her mother had depression. She states she has a living brother, who had survived 4 cancers. DEVELOPMENTAL HISTORY: Born in [place]. Her father was in the . Raised in [place]. 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 She has a master's degree in special education WORK HISTORY: Retired 20 years. 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 She denies physical, sexual or emotional abuse. Her stepson is 42 years old. She reports COVID-19 infection in early June. REVIEW OF SYSTEMS: For depression, she endorses trouble sleeping, no insomnia. LABORATORY DATA: Reviewed laboratories done in the ER on 08/22/2020, H and H 13.1 and 39.1, white count 6.0, platelet count 248. Chemistries yesterday, sodium 139, potassium 3.9, chloride 106, bicarbonate 25, anion gap 8, BUN 10, creatinine 0.8, estimated GFR 70, glucose 143, calcium 8.9, total bilirubin 0.7, direct bilirubin 0.1, AST 18, ALT 16, alkaline phosphatase 67, total protein 6.1, albumin 3.0, actually that was done in May in terms of the cholesterol. Also on 06/16/2020, her B12 was 629, 25-hydroxy vitamin D 65.9. Folate was normal at 11.6. TSH is high, currently at 20.764, but reports she is in compliance with thyroid replacement medication. Last imaging done head CT 06/21/2020 read as moderate cerebral atrophy and minimal chronic deep white matter changes that is attributed to microvascular ischemia. Generally, no acute processes. Interestingly enough, she had a head MRI done as well that was done as a stroke concern and there was no abnormal MRI of the brain, so utmost, she had a TIA. Urine culture done on May was negative. [facility] [address] [address] HISTORY AND PHYSICAL Name: EDD HUNTER Nathan Room #: 526A-A [facility] IN ..#: [id number] Admission: 08/22/20 Attend Phys: Phi Maya, Discharge: Date of : 41 Report #: [id number] PHYSICAL EXAMINATION: VITAL SIGNS: Today, temperature 36.8, pulse 71, respirations 19, BP 113/70, O2 sat 94%. MUSCULOSKELETAL: Wearing glasses, slow gait. Normal station. MENTAL STATUS EXAMINATION: This is a well-developed, overweight female appearing at least stated age. Attention limited. Concentration limited. Speech slow, soft. Thought process is linear and goal directed. Thought content, relative poverty of thought. No psychomotor agitation, slight psychomotor retardation. Denied SI or HI. Some helplessness, no hopelessness. Denied auditory, visual, or tactile hallucinations. Memory was formally tested. The patient was administered the [facility] Mental Status Examination by my students scored an 18/30. Deficits were on working memory with making change, question, verbal fluency, short-term recall, intentional with reverse digit span, she could only do a max to 3 digits in reverse, ____ executive dysfunction with 0/4 on clock drawing and she has 6/8 over paragraph question. Her geriatric depression scale was over +4 interestingly. FORMULATION: A 74-year-old female presenting for worsening depression and anxiety, though she denies panic attacks and does not know she has been diagnosed with generalized anxiety disorder. DIAGNOSES: Major neurocognitive disorder by [facility] and interview, also neurobehavioral status exam done by the neuropsychologist, Dr. Nabeel Gillespie in May 2020. Additional morbidities include hypothyroidism, hypertension, hyperlipidemia, mild obesity, grief from her 's just over a month ago. PLAN: Evaluate, stabilize, obtain collateral. Regarding her medication, we will change her to MiraLax daily 17 gramby patient request. For anxiety and augmentation of depression, we will put her on 500 mg of Seroquel 3 times a day, I will raise her trazodone to 125 mg and make it p.r.n. at 2230 daily. Continue folic acid. We will move her Lexapro to the morning 20 mg daily, to continue vitamin D3. Continue atorvastatin 40 mg oral daily, aspirin 81 mg oral daily, levothyroxine 50 mcg oral daily. I will defer to hospitalist on modified due to the high TSH. ESTIMATED LENGTH OF STAY: 10-14 days. target worker will arrange a family meeting. Time spent on this case is greater than 60 minutes, greater than 50% time was spent on review of records, coordination of care. strength: educated, insured [address] [address] HISTORY AND PHYSICAL Name: EDD HUNTER Nathan Room #: 526A-A ADM IN M.R.#: [id number] Admission: 08/22/20 Attend Phys: Phi Maya, DO Discharge: Date of : 41 Report #: [id number] wekness: recently , has neurodegenerative disorder <ELECTRONICALLY SIGNED> By: Phi Maya DO 08/26/20 1211 1332 1443 Phi Maya DO /nt
--- NOTE | 2020-08-26 13:13 | NUR ---
PATIENT HAS BEEN UP, AND OUT ON THE UNIT, AMBULATES WITH STEADY GAIT. PATIENT IS A&O X 3-4, ABLE TO VOICE NEED. PATIENT TOOK ALL MEDICATION WHOLE WITHOUT DIFFICULTY, SHE IS EATING MEALS, AND DRINKING FLUID WELL. PATIENT DENIES SUICIDAL/HOMICIDAL IDEATION, SHE RATES DEPRESSION 7/10, ANXIETY 5/10, SHE DENIES AUDITORY/VISUAL HALLUCINATION. PATIENT DENIES HAVING PHYSICAL PAIN. PATIENT PARTICIPATES IN GROUP THERAPY, SHE INTERACTS WELL WITH STAFF/PEERS. AFFECT IS BRIGHT, MOOD IS DEPRESSED, NO SIGN OF ACUTE DISTRESS NOTED AT THIS TIME, WILL MONITOR FOR SAFETY.
--- NOTE | 2020-08-26 15:49 | NUR ---
SW and Pt called [facility] in SW office. Pt was able to speak to Lawrence and ask questions about the facility. SW also looked up the facilities website with the Pt for more information. Pt expressed feeling a little better about the facility but still felt nervous. Pt will discharge 08/29/2020 @11 am. Pt will be transported via [facility].
[2020-08-26 19:21] VITALS: BP 133/91
--- NOTE | 2020-08-26 23:35 | NUR ---
PT SMILING AND TALKING WIHT PEERS IN DAYROOM WATCHING MOVIE. PT COMPLIANT WITH HS MEDS AND SNACK. PT APPROACHED STAFF FOR ASSISTANCE TO BED. PT VERY TALKATIVE [facility] CONTACT SAYING THANK YOU. BED ALARM ON.
--- NOTE | 2020-08-27 08:26 | NUR ---
PT SITTING OUT IN DINING ROOM WITH PEERS EATING BREAKFAST. PT DOES INTERACT WITH STAFF AND PEERS. PT DENIES ANY PAIN AT THIS TIME. PT STILL IN GRIEVING WITH DEPRESSION.
[2020-08-27 08:30] VITALS: BP 129/67
[2020-08-27 09:22] VITALS: BP 136/74
--- NOTE | 2020-08-27 10:39 | NUR ---
PT. WAS AN ACTIVE PARTICIPANT. SHE KICKED THE BEACH BALL AROUND WITH PEERS/STAFF. SHE STATED HER GOAL TALKING TO THE DR., TAKING HER MEDICATIONS, AND GOING TO GROUPS. SHE IS PLEASANT AND COOPERATIVE WITH STAFF. SHE STATES SHE JUST WANTS TO FIND HER WAY TO GO HOME FROM HERE.
--- NOTE | 2020-08-27 17:59 | NUR ---
PT HAD A GOOD DAY TODAY. PT PARTICIPATING IN GROUP AND EATING MEALS.
[2020-08-27 19:00] VITALS: BP 143/76
[2020-08-28 00:26] VITALS: BP 136/74
--- NOTE | 2020-08-28 00:37 | NUR ---
Assumed care on 08/27/20 @ 1900, seated with a peer in the day room, speaking together and watching TV movie. A&Ox3 not able to name place. HRRR, Lungs CTA bilat, ABD N reports bm yesterday. Denies pain. Compliant with medication administration, takes meds whole. Retired to bed @ . Currently in bed with eyes closed, respirations even and unlabored.
[2020-08-28 08:30] VITALS: BP 115/57
[2020-08-28 09:05] VITALS: BP 115/57
--- NOTE | 2020-08-28 09:08 | NUR ---
PT OUT IN DINING ROOM AT THIS TIME. PT HAS FLAT AFFECT AT TIMES AND DOES SMILE WITH STAFF AND CONVERSE IN CONVERSATION. PT TOOK MEDS WITHOUT ANY ISSUES THIS AM. PT UP AD KAT WITH SAFE GAIT, WITH SLIGHT LIMP.
[2020-08-28 19:54] VITALS: BP 144/82
[2020-08-29 00:43] VITALS: BP 144/82
--- NOTE | 2020-08-29 00:47 | NUR ---
Assumed care on 08/28/20 @ 1900, seated in the day room watching TV and socializing with peers. Cooperative with assessment and compliant with medication administration, taking meds whole with water. HRRR, Lungs CTA bilat, ABD N bs. Denies pain. A&Ox3 oriented to person, time. Able to name the president. Flat affect noted. Reports depression at a 4/10 level, Anxiety at a 5/10 level. Denies pain, Denies AH/VH. Retired to bed @ HS, eyes closed, respirations even and unlabored. Bed in low position. Will continue to monitor for safety and comfort as per unit protocol.
[2020-08-29] MEDS ORDERED: LIPITOR40 MG PO (09:01)
[2020-08-29] MEDS ORDERED: ARICEPT 5 MG TAB5 MG PO (09:01)
[2020-08-29] MEDS ORDERED: LEXAPRO20 MG PO (09:02)
[2020-08-29] MEDS ORDERED: TRAZODONE HCL50 MG PO (09:02)
[2020-08-29] MEDS ORDERED: SEROQUEL 25 MG25 M1 PO (09:03)
[2020-08-29] MEDS ORDERED: MIRALAX17 GM PO (09:03)
[2020-08-29] MEDS ORDERED: TIROSINT75 MCG PO (09:04)
[2020-08-29 09:31] VITALS: BP 119/61
[2020-08-29 10:11] VITALS: BP 119/61
[2020-08-29 10:15] VITALS: BP 119/61
--- NOTE | 2020-08-29 11:06 | NUR ---
ASSUMED CARE OF PATIENT AT 0700 - SITTING IN [facility]. PLEASANT AND RESPONSIVE TO STAFF AND PEERS. STATED HAD GOOD NIGHT SLEEP. FORGETFUL AT TIMES STATED DID NOT KNOW SHE WAS DISCHARGING AT 11 AM THIS MORNING. PATIENT ATE BREAKFAST. COMPLIANT WITH MEDICATIONS AND EAGER TO BE DISCHARGED. MAKES NEEDS KNOWN. PLEASANT.
--- NOTE | 2020-08-29 11:27 | NUR ---
PATIENT DISCHARGED AT 11:23 AM TO [facility]. TRANSPORTED BY ALLISON CROWE IN PRIVATE VEHICLE. PATIENT WAS ALERT AND ORIENTED 2-3 - PLEASANT AND AGREEABLE. ATE SUBSTANCIALLY ALL HER BREAKFAST AND MEDICATION COMPLIANT WITH MORNING PASS. PATIENT VITALS STABLE AT TIME OF DISCHARGE AND HAD HER CANE AND WAS WEARING CLOTHES SHE HAD ARRIVED IN. PRESCRIPTIONS IN PACKET
--- NOTE | 2020-08-30 20:52 | D ---
[facility] [place] [address] DISCHARGE SUMMARY Name: EDD HUNTER Room #: 526A-A [facility] IN M.R.#: [id number] Admission: 08/22/20 Attend Phys: Phi Maya DO Discharge: 08/29/20 Date of : 41 Report #: [id number] THIS REPORT FOR: cc: Dc Renner MD, Mark A. MD Kerstein, Andrew H. DO ~ DATE OF SERVICE: 08/29/2020 INPATIENT PSYCHIATRIC DISCHARGE SUMMARY ATTENDING PSYCHIATRIST: Phi Maya DO. EMANATIONS ANALYSIS TECHNICIAN: Phi Zazueta MD. PRIMARY CARE PHYSICIAN: Dc Renner MD DISCHARGE DIAGNOSES: Major neurocognitive disorder, likely due to Alzheimer's disease without behavioral disturbance, major depressive disorder, single episode, improved. Medical comorbidities include hypertension, BP stable, hypothyroidism. DISCHARGE PLAN: The patient is discharging to the [facility] with Dr. Renner coordinating psychiatric and medical care. If they do not have a psychiatrist there, the patient will be having tele-video sessions with Dr. Shane Mendoza , which will be fine. DISCHARGE MEDICATIONS: Vitamin D3 5000 International Units oral daily for supplement, aspirin 81 mg oral daily for hypertension, folic acid 1 mg oral daily for supplement, donepezil 5 mg oral at bedtime for cognitive enhancement, atorvastatin 40 mg oral daily for hyperlipidemia, Lexapro 20 mg oral daily for depression; trazodone 125 mg oral at 2300 p.r.n. for sleep. Seroquel 25 mg oral at 0900, 1500, 2100 for anxiety; MiraLax 17 grams oral daily for bowel motility; levothyroxine 75 mcg oral daily for thyroid replacement. LABORATORY DATA: Significant laboratories this admission, hematology last done on 08/22/2020, H and H 13.1 and 39.1, white count 6.0, platelet count 248. Chemistries: Sodium 139, potassium 3.9, chloride 106, bicarbonate 25, anion gap 8, BUN 10, creatinine 0.8, estimated GFR 70, glucose 143. Hemoglobin A1c done in May was 5.1, calcium 8.9, magnesium 3.1, total bilirubin 0.7, direct bilirubin 0.1, AST 18, ALT 16, alkaline phosphatase 67, total protein 6.1, albumin 3.0. TSH was high at 20.764. REASON FOR ADMISSION: Back on 08/22/2020, a 74-year-old female who had recently been in rehabilitation facility and discharged, was very depressed. There was [address] [address] DISCHARGE SUMMARY Name: EDD HUNTER Room #: 526A-A [facility]#: [id number] Admission: 08/22/20 Attend Phys: Phi Maya, Discharge: 08/29/20 Date of : 41 Report #: [id number] concern for major neurocognitive disorder. HOSPITAL COURSE: The patient was admitted to Geriatric Psychiat[facility] Unit. After review of records, patient had been diagnosed by Dr. Nabeel Gillespie in May of this year during a [address] [place] [address] rehabilitation unit admission with major neurocognitive disorder. Her in June. Her marina Parsons was living with her. I felt that overwhelmingly her symptomatology was due to not being in the structured living environment. Recommendation was made for memory care. Her son and PCP gave preference for [facility]. I think at present that is reasonable as long as the patient does not become an elopement risk. There was a family request for initiation of cognitive enhancer. Her depression improved. Her anxiety lessened, sleep improved, felt to be safe for discharge. No SI. No HI. PHYSICAL EXAMINATION: VITAL SIGNS: On the day of discharge, temperature 36.6, pulse 68, respirations 18, BP 119/61, O2 sat 96%. MUSCULOSKELETAL: Normal gait and station. MENTAL STATUS EXAMINATION: This is a well-developed, borderline obese female appearing stated age. Attention fair. Concentration limited. Speech is normal rate and tone. Thought process is linear and goal directed. Thought content focused on discharge. Denied SI or HI. Denied auditory, visual, or tactile hallucinations. Denied psychosis. Mood and affect were calm, congruent and euthymic. Insight and judgment limited. Fund of knowledge average. PROGNOSIS: For this patient is guarded given her age of 74, having a neurodegenerative disorder. Supportive therapy will be indicated at the nursing facility due to her recent grief and adjustment. <ELECTRONICALLY SIGNED> By: Phi Maya DO 08/30/202051 10 99 Phi Maya DO /nt
== END 2020-08-29 11:31 | DRG 57 ==
LOC: SBH
PROVIDERS: ADMIT Psychiatry & Neurology Psychiatry; ATTEND Psychiatry & Neurology Psychiatry
DX: G30.9 Alzheimer's disease, unspecified (principal); F02.80 Dementia in other diseases classified elsewhere, unspecified severity, without behavioral disturbance, psychotic disturbance, mood disturbance, and anxiety; F01.50 Vascular dementia, unspecified severity, without behavioral disturbance, psychotic disturbance, mood disturbance, and anxiety; F32.9 Major depressive disorder, single episode, unspecified; E03.9 Hypothyroidism, unspecified; I10 Essential (primary) hypertension; E78.5 Hyperlipidemia, unspecified; E66.9 Obesity, unspecified; Z20.822 Contact with and (suspected) exposure to COVID-19; Z68.30 Body mass index [BMI] 30.0-30.9, adult; Z90.710 Acquired absence of both cervix and uterus
CPT/HCPCS: 10880